=== PATIENT | male | born 1970 | race African-American/Black ===

== ENCOUNTER 2018-01-05 15:55 | Inpatient (IN) | payer SELFPAY ==
[2018-01-05] MEDS ORDERED: Nitroglycerin 0.4 MG TAB (25 Tab Bottle) SL PRN (17:08)
[2018-01-05] MEDS ORDERED: Ondansetron HCl/PF 4 MG/2 ML Vial IVP PRN ×2 (17:08)
[2018-01-05] MEDS ORDERED: Benzonatate 100 MG CAP PO PRN (17:08)
[2018-01-05] MEDS ORDERED: Calcium Carbonate 500 MG ChewTAB PO PRN (17:08)
[2018-01-05] MEDS ORDERED: traMADol HCl 50 MG TAB PO PRN (17:08)
[2018-01-05] MEDS ORDERED: Dextrose 50% Abboject 50 ML SYRINGE SLOW IVP PRN (17:08)
[2018-01-05] MEDS ORDERED: hydrALAZINE 20 MG/ML VIAL SLOW IVP PRN (17:08)
[2018-01-05] MEDS ORDERED: Bisacodyl 5 MG TAB PO PRN ×2 (17:08)
[2018-01-05] MEDS ORDERED: Loratadine 10 MG TAB PO PRN (17:08)
[2018-01-05] MEDS ORDERED: Dextrose 5% in Water 1,000 ML IV PRN (17:08)
[2018-01-05] MEDS ORDERED: Lorazepam 1 MG TAB PO PRN (17:08)
[2018-01-05] MEDS ORDERED: HumaLOG 300 UNITS/3 ML VIAL SC PRN (17:08)
[2018-01-05] MEDS ORDERED: Mag-Al 1200 mg/1200 mg/30 ML UDCUP PO PRN (17:08)
[2018-01-05] MEDS ORDERED: Diabetic Tussin 200 MG/10 ML UDCUP PO PRN (17:08)
[2018-01-05] MEDS ORDERED: Senokot 8.6 MG TAB PO PRN ×2 (17:08)
[2018-01-05 17:51] LABS: #Lymphocytes 1.1 thou/uL (1.20-3.40); #Monocytes 1.1 thou/uL (0.11-0.59); %Basophils 0.1 % (0.0-1.0); %Eosinophils 0.4 % (0.0-10.0); %Lymphocytes 9.3 % (21.0-51.0); %Neutrophils 81.3 % (42.0-75.0); Hemoglobin 10.9 g/dL (14.0-18.0); Mean Corpuscular HGB CONC 33.9 g/dL (32.0-36.0); Mean Corpuscular Hemoglobin 30.6 pg (27.0-31.0); Mean Corpuscular Volume 90.2 fL (78.0-98.0); Mean Platelet Volume 8.3 fL (7.4-10.4); Platelet Count 209 thou/uL (130-400); RBC Distribution Width 11.1 % (11.5-14.5); Red Blood Cell (RBC) Count 3.55 mill/uL (4.70-6.10); White Blood Cell (WBC) Count 12.3 thou/uL (4.8-10.8)
[2018-01-05] MEDS: Sodium Chloride 0.9% 1,000 ML IV SCH (18:04)
[2018-01-05] MEDS: Piperacillin/Tazobactam 3.375 GM in Sodium Chloride 0.9% 100 ML IVPB SCH (18:05)
[2018-01-05] MEDS: HumaLOG 300 UNITS/3 ML VIAL SC PRN (18:07)
[2018-01-05 18:23] LABS: ALT (SGPT) 9 U/L (8-55); AST (SGOT) 14 U/L (5-34); Albumin 2.7 g/dL (3.5-5.0); Alkaline Phosphatase 59 U/L (40-150); Anion Gap 12 mmol/L (10-20); BUN (Urea Nitrogen) 9 mg/dL (8.9-20.6); Bilirubin, Total 0.5 mg/dL (0.2-1.2); Calc. Creatinine Clearance 121 mL/min (70-130); Calcium 7.9 mg/dL (7.8-10.44); Carbon Dioxide 23 mmol/L (22-29); Chloride 102 mmol/L (98-107); Estimated GFR-MDRD Greater than 90; Globulin 4.2 g/dL (2.4-3.5); Glucose 220 mg/dL (70-105); Potassium 4.4 mmol/L (3.5-5.1); Protein, Total 6.9 g/dL (6.0-8.3); Sodium 133 mmol/L (136-145)
[2018-01-05 19:15] LABS: Bilirubin Negative (Negative); Blood, Urine Small (Negative); Clarity TURBID (Clear); Glucose, Urine (Dipstick) 250 mg/dL (Negative); Leukocyte Large (Negative); Nitrite Negative (Negative); Protein, Urine (Dipstick) Trace mg/dL (Neg-Trace); Specific Gravity, Urine 1.021 (1.002-1.036); pH, Urine 5.5 (5.0-9.0)
[2018-01-05 19:18] LABS: Bacteria/HPF None Seen HPF (None Seen); Hyaline Casts/LPF 4-6 HYALINE CAST LPF (0-3 Hyaline); Pathc Cast-AUWi Flag 1.52 (0-2.49); Squamous Epithelial 0-3 HPF (0-3)
[2018-01-05 19:19] LABS: Hemoglobin A1c 11.5 % (4.0-6.0)
--- NOTE | 2018-01-05 19:41 | HP ---
PRIMARY CARE PHYSICIAN: None. CHIEF COMPLAINT: Worsening of right lower extremity wound, fever, and chills. HISTORY OF PRESENT ILLNESS: Mr. Aguila is a 47-year-old male with known history of diabetes mellitus, who presented to [facility] in [facility] with above-mentioned complaints. History is m ainly obtained from the patient himself and paper records are reviewed in detail from [facility] cy Room. Mr. Aguila reports that he stopped taking his metformin about 1 year ago because of financial reasons a nd because he does not have a primary care physician. He reports that for the last year or so, he olmos s noticed some sores on his legs anteriorly, which she has been picking up. About 3 weeks ago, he tr ied to shave off some of the dry skin of his right foot on the bottom and since then it has started t o open up and drain. He was told to soak it, so he put his feet in hot water and got burnt by that a lso. For the last 4 or 5 days, he has been running a low-grade fever, is having chills, and feels po autumn. He noticed increased drainage and pain in his right foot as well. Upon presentation to the emergency room, he was hemodynamically stable. His examination revealed masoud kocytosis. He underwent a foot x-ray, which showed suggestion of osteomyelitis. He received vancomy cosme and Zosyn in the ER and was transferred to our facility for admission. At the time of my evaluation, the patient is still having some chills, but is otherwise comfortable. PAST MEDICAL HISTORY: [id number] diabetes mellitus. PAST SURGICAL HISTORY: None reviewed with the patient. SOCIAL HISTORY: No history of drug, tobacco, or alcohol abuse. He lives with his girlfriend. FAMILY HISTORY: Significant for diabetes mellitus and congestive heart failure in his mother. Some of his aunts also have had diabetes. He denies any family history of coronary artery disease, cancer , or renal failure. CURRENT MEDICATIONS: None. ALLERGIES: No known medication allergies. REVIEW OF SYSTEMS: The following complete review of systems was negative, unless otherwise mentioned in the HPI or below: Constitutional: Weight loss or gain, ability to conduct usual activities. Skin: Rash, itching. Eyes: Double vision, pain. ENT/Mouth: Nose bleeding, neck stiffness, pain, tenderness. Cardiovascular: Palpitations, dyspnea on exertion, orthopnea. Respiratory: Shortness of breath, wheezing, cough, hemoptysis, fever or night sweats. Gastrointestinal: Poor appetite, abdominal pain, heartburn, nausea, vomiting, constipation, or diarrhea. Genitourinary: Urgency, frequency, dysuria, nocturia. Musculoskeletal: Pain, swelling. Neurologic/Psychiatric: Anxiety, depression. Allergy/Immunologic: Skin rash, bleeding tendency. LABORATORY DATA: Labs are repeated here today. They showed leukocytosis with WBCs of 12.3 with left shift and neutrophils 81%. Hemoglobin is 10.9. Serum chemistry shows sodium of 133, blood sugar 22 0, albumin 2.7, otherwise unremarkable. Foot x-ray report has been reviewed by myself, which suggest right foot osteomyelitis and soft tissue inflammation and swelling. PHYSICAL EXAMINATION: VITAL SIGNS: On presentation, temperature 101.2, respirations 16, pulse of 102, saturating 96% on ro om air, blood pressure 119/75. GENERAL: No acute distress, awake, alert, oriented x3. HEENT: Mucous membrane is moist and pink. No oropharyngeal exudate or erythema. Head is normocepha lic, atraumatic. Pupils equally reactive to light and accommodation. Extraocular movement intact. NECK: Supple without any lymphadenopathy, JVD, or bruit. CHEST: Clear to auscultation without any wheezing, rales, or rhonchi. Rhythm is regular without any murmur, rubs, or gallops. ABDOMEN: Soft, nontender, nondistended with positive bowel sounds. EXTREMITIES: Chronic lower extremity venostasis changes bilaterally. He has superficial shallow den udation of the skin anteriorly in both legs and the shins. He has multiple healing scars and shallow ulcers from where he has picked on his boils on the legs. He has right foot under dressing, but Gauri marin reviewed the pictures with the RN. He has significant amount of deep ulceration of the right fir st toe on the plantar surface. He also has a shallow denudation of the skin between the first and se cond toe on the foot in the plantar surface. VASCULAR: +2 pedal pulses felt in the left lower extremity easily. Right lower extremity is in dres sing and hard to palpate. LYMPH NODE: Nontender, mobile lymphadenopathy in the right inguinal region. NEUROLOGIC: Nonfocal. SKIN: Free of any rashes and shows findings as above in the extremity examination. PSYCHIATRIC: Depressed affect. IMPRESSION AND PLAN: 1. Right lower extremity osteomyelitis. This is likely secondary to uncontrolled diabetes. The pat ient will likely need amputation or at the very least incision and drainage. At this time, we will c ontinue with broad-spectrum IV antibiotics and repeat blood cultures here. We will request consultat ion with General Surgery for possible amputation. We will also have Wound Care see and evaluate the patient. I do not suspect vascular element to his ulceration, as I was able to palpate his dorsalis pedis on the left foot easily. He is currently not in any septic shock. We will start him on gentle IV fluid hydration and monitor hemodynamics. 2. Sepsis secondary to right lower extremity osteomyelitis. Continue IV fluids and IV antibiotics a s above. 3. Uncontrolled diabetes mellitus. The patient will be treated with insulin sliding scale while he is here. We will check a hemoglobin A1c. I did discuss the diabetic control with the patient and he will be provided with cheap medications and will be set up with a primary care physician whenever he is ready to leave. 4. Code status. Code status was discussed and the patient has exhibited desire to be a DO NOT INTUB ATE and DO NOT RESUSCITATE. I have discussed this in detail with him and he understands what it enta ils. 5. Deep venous thrombosis and gastrointestinal prophylaxis. DISPOSITION: Mr. Aguila is currently being admitted for right foot osteomyelitis and sepsis. Estimate d length of stay is at least 2-3 midnight. Further management will depend upon his clinical course.
[2018-01-05] MEDS ORDERED: Vancomycin HCl 1 GM in Premix Bag 1 BAG IVPB SCH (21:00)
--- NOTE | 2018-01-05 21:21 | PDOC.EVN ---
Event Note - Event Note Event Note: paged by RN pt willing to change DNR status to full code.
[2018-01-05] MEDS: Famotidine 20 MG TAB PO SCH (21:31)
[2018-01-05] MEDS: Vancomycin HCl 1.25 GM in Sodium Chloride 0.9% 250 ML 250 ML IVPB SCH (21:32)
[2018-01-06] MEDS: Piperacillin/Tazobactam 3.375 GM in Sodium Chloride 0.9% 100 ML IVPB SCH ×5 (00:59→23:24)
[2018-01-06] MEDS: Acetaminophen 325 MG TAB PO PRN ×2 (03:45→13:44)
[2018-01-06 04:35] LABS: #Eosinphils 0.1 thou/uL (0.0-0.7); #Lymphocytes 1.9 thou/uL (1.20-3.40); #Monocytes 1.2 thou/uL (0.11-0.59); #Neutrophils 8.5 thou/uL (1.40-6.50); %Basophils 0.3 % (0.0-1.0); %Eosinophils 0.9 % (0.0-10.0); %Lymphocytes 15.9 % (21.0-51.0); %Monocytes 10.3 % (0.0-10.0); %Neutrophils 72.6 % (42.0-75.0); Hemoglobin 11.2 g/dL (14.0-18.0); Mean Corpuscular HGB CONC 33.9 g/dL (32.0-36.0); Mean Corpuscular Hemoglobin 30.7 pg (27.0-31.0); Mean Corpuscular Volume 90.6 fL (78.0-98.0); Mean Platelet Volume 8.8 fL (7.4-10.4); Platelet Count 194 thou/uL (130-400); RBC Distribution Width 11.2 % (11.5-14.5); Red Blood Cell (RBC) Count 3.66 mill/uL (4.70-6.10); White Blood Cell (WBC) Count 11.7 thou/uL (4.8-10.8)
[2018-01-06 05:02] LABS: Anion Gap 12 mmol/L (10-20); BUN (Urea Nitrogen) 9 mg/dL (8.9-20.6); Calc. Creatinine Clearance 122 mL/min (70-130); Calcium 8.3 mg/dL (7.8-10.44); Carbon Dioxide 22 mmol/L (22-29); Chloride 104 mmol/L (98-107); Estimated GFR-MDRD Greater than 90; Glucose 164 mg/dL (70-105); Sodium 134 mmol/L (136-145)
[2018-01-06] MEDS: Vancomycin HCl 1.25 GM in Sodium Chloride 0.9% 250 ML 250 ML IVPB SCH ×3 (05:50→23:06)
[2018-01-06] MEDS: Famotidine 20 MG TAB PO SCH ×2 (10:11→23:06)
[2018-01-06] MEDS: Enoxaparin Sodium 40 MG/0.4 ML SYRINGE SC SCH (10:11)
--- NOTE | 2018-01-06 11:34 | MRI ---
MRI OF THE RIGHT FOREFOOT WITH AND WITHOUT CONTRAST: HISTORY: Diabetic ulcer. Osteomyelitis. COMPARISON: None. FINDINGS: Bones: On the T1 weighted imaging sequence, there is loss of normal marrow signal throughout the great toe d istal phalanx. Mild reactive edema of the proximal phalanx. There is an abscess descending into the dorsal soft tissues to the level of the proximal phalanx grea t toe. Extensive reactive edema and swelling throughout the forefoot. Mild infectious inflammatory tenosyno vitis of the extensor pollicis longus tendon. Moderate degenerative disease of the mid foot. Moderate muscle atrophy. IMPRESSION: Osteomyelitis of the great toe distal phalanx with a suggestion of interphalangeal septic arthritis. There is large dorsal soft tissue edema and draining abscess measuring 1.6 x 1.1 x 1.5 cm. POS: FRANCISCO
--- NOTE | 2018-01-06 11:58 | PDOC.PN ---
- Subjective Encounter Start Date: 01/06/18 Encounter Start Time: 11:56 Subjective: feels better. no more fever/chills -: no pain in foot.no N/V/D - Objective Resuscitation Status: Resuscitation Status FULL:Full Resuscitation MAR Reviewed: Yes Vital Signs & Weight: Vital Signs (12 hours) Temp Pulse Resp BP Pulse Ox 01/06/18 06:42 95 01/06/18 04:00 100.4 F H 112 H 18 149/85 H 95 01/06/18 00:00 100.0 F H 101 H 18 131/81 96 Weight Weight 190 lb I&O: 01/05/18 01/06/18 01/07/18 06:59 06:59 06:59 Intake Total 3160 Balance 3160 Result Diagrams: 01/06/18 03:51 01/06/18 03:51 Additional Labs: Accuchecks 01/06/18 01/05/18 06:27 18:00 POC Glucose 182 H 216 H Microbiology 01/05/18 19:00 Urine clean catch Urine Culture - Preliminary Staphylococcus aureus 01/05/18 17:43 Venous blood - Left Arm Blood Culture - Preliminary Specimen has been received and culture in progress. No Growth to date. 01/05/18 17:38 Venous blood - Right Arm Blood Culture - Preliminary Specimen has been received and culture in progress. No Growth to date. labs reviewed Phys Exam - Physical Examination Constitutional: NAD HEENT: PERRLA, moist MMs, sclera anicteric, oral pharynx no lesions Neck: no nodes, no JVD, supple, full ROM Respiratory: no wheezing, no rales, no rhonchi, clear to auscultation bilateral Cardiovascular: RRR, no significant murmur, no rub Gastrointestinal: soft, non-tender, no distention, positive bowel sounds Musculoskeletal: no edema, pulses present B/L LE chr discoloration w ant excoriation.R foot dressing Neurological: non-focal, normal sensation, moves all 4 limbs Psychiatric: normal affect, A&O x 3 Skin: no rash Dx/Plan (1) Foot osteomyelitis, right Code(s): M86.9 - OSTEOMYELITIS, UNSPECIFIED Status: Acute (2) Sepsis Code(s): A41.9 - SEPSIS, UNSPECIFIED ORGANISM Status: Acute (3) Uncontrolled diabetes mellitus Code(s): E11.65 - TYPE 2 DIABETES MELLITUS WITH HYPERGLYCEMIA Status: Acute - Plan continue antibiotics, out of bed/ambulate, DVT proph w/SCDs MRI shows osteo.cont broad spectrum antibiotics. -: OR today by GS for I&D. may need amputation. -: HbA1c >11. will need to be started on metformin on DC.Cont Insulin for now. -: will consult palliative care team for emotional support & goals of care -: will likley need wound care/vac/PICC & IV Abx.will follow * . Review of Systems - Review of Systems Constitutional: malaise. negative: fever, chills, sweats, weakness, other Respiratory: negative: Cough, Dry, Shortness of Breath, Hemoptysis, SOB with Excertion, Pleuritic Pain, Sputum, Wheezing Cardiovascular: negative: chest pain, palpitations, orthopnea, paroxysmal nocturnal dyspnea, edema, light headedness, other Gastrointestinal: negative: Nausea, Vomiting, Abdominal Pain, Diarrhea, Constipation, Melena, Hematochezia, Other Genitourinary: negative: Dysuria, Frequency, Incontinence, Hematuria, Retention , Other Musculoskeletal: negative: Neck Pain, Shoulder Pain, Arm Pain, Back Pain, Hand Pain, Leg Pain, Foot Pain, Other Skin: negative: Rash, Lesions, Aba, Bruising, Other Neurological: negative: Weakness, Numbness, Incoordination, Change in Speech, Confusion, Seizures, Other - Medications/Allergies Allergies/Adverse Reactions: Allergies Allergy/AdvReac Type Severity Reaction Status Date / Time No Known Allergies Allergy Unverified 01/05/18 17:17 Medications: Current Medications Acetaminophen (Tylenol) 650 mg PO Q4H PRN PRN Reason: Headache/Fever or Pain Last Admin: 01/06/18 03:45 Dose: 650 mg Hydrocodone Bitart/Acetaminophen ([place] 5/325) 1 tab PO Q4H PRN PRN Reason: Moderate Pain (4-6) Al Hydroxide/Mg Hydroxide (Maalox) 30 ml PO Q6H PRN PRN Reason: Heartburn or Indigestion Benzonatate (Tessalon) 100 mg PO Q4H PRN PRN Reason: Cough Bisacodyl (Dulcolax) 10 mg PO DAILYPRN PRN PRN Reason: Constipation Calcium Carbonate (Tums) 1,000 mg PO Q4H PRN PRN Reason: Heartburn or Indigestion Clonidine (Catapres) 0.1 mg PO Q4H PRN PRN Reason: Systolic BP > 160 Dextrose/Water (Dextrose 50%) 25 gm SLOW IVP PRN PRN PRN Reason: Hypoglycemia Enoxaparin Sodium (Lovenox) 40 mg SC 0900 [facility] Last Admin: 01/06/18 10:11 Dose: Not Given Famotidine (Pepcid) 20 mg PO BID [facility] Last Admin: 01/06/18 10:11 Dose: Not Given Glucagon (Glucagon) 1 mg IM PRN PRN PRN Reason: Hypoglycemia Guaifenesin (Robitussin Sf) 200 mg PO Q4H PRN PRN Reason: Cough Hydralazine HCl (Apresoline) 10 mg SLOW IVP Q4H PRN PRN Reason: Systolic BP > 170 Dextrose/Water (D5w) 1,000 mls @ 0 mls/hr IV .Q0M PRN; As Directed PRN Reason: Hypoglycemia Sodium Chloride (Normal Saline 0.9%) 1,000 mls @ 75 mls/hr IV .[id number] [facility] Last Admin: 01/05/18 18:04 Dose: 1,000 mls Piperacillin Sod/Tazobactam (Sod 3.375 gm/ Sodium Chloride) 100 mls @ 200 mls/ hr IVPB Q6HR [facility] Last Admin: 01/06/18 05:52 Dose: 100 mls Vancomycin HCl 1.25 gm/ Sodium (Chloride) 250 mls @ 166.667 mls/hr IVPB 0500, 1300,2100 [facility] Last Admin: 01/06/18 05:50 Dose: 250 mls Insulin Human Lispro (Humalog) 0 units SC .MODERATE SLIDING SC PRN PRN Reason: Moderate Correctional Scale Last Admin: 01/05/18 18:07 Dose: 4 unit Insulin Human Lispro (Humalog) 0 units SC .BEDTIME SLIDING SC PRN PRN Reason: Bedtime Correctional Scale Loratadine (Claritin) 10 mg PO DAILYPRN PRN PRN Reason: Sinus Symptoms Lorazepam (Ativan) 1 mg PO Q4H PRN PRN Reason: Anxiety/Agitation Miscellaneous Medication (Pharmacy To Dose) 1 each IVPB PRN PRN PRN Reason: . Nitroglycerin (Nitrostat) 0.4 mg SL Q5MIN PRN PRN Reason: Chest Pain Ondansetron HCl (Zofran) 4 mg IVP Q6H PRN PRN Reason: Nausea/Vomiting Senna (Senokot) 2 tab PO HSPRN PRN PRN Reason: Constipation Tramadol HCl (Ultram) 50 mg PO Q4H PRN PRN Reason: Moderate Pain (4-6)
[2018-01-06 12:16] VITALS: BMI 22.5
[2018-01-06 12:20] LABS: Vancomycin, Trough 13.4 ug/mL
[2018-01-06] MEDS ORDERED: Ketorolac Tromethamine 30 MG/ML VIAL ONE ×2 (16:00→21:11)
[2018-01-06] MEDS ORDERED: Ondansetron HCl/PF 4 MG/2 ML Vial ONE (16:00)
[2018-01-06] MEDS ORDERED: Lidocaine 1% PF 5 ML VIAL ONE (16:00)
[2018-01-06] MEDS ORDERED: PROPOFOL 200 MG/20 ML VIAL ONE (16:00)
--- NOTE | 2018-01-06 18:58 | HP ---
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 He lives in [place]. He has been a diabetic for more than 4 years, but has not taken his medicatio ns. He is admitted for a diabetic infection in right great toe. His white count is 11.7, hemoglobin 11.2. His hemoglobin A1c is 11.5, glucose is 164 to 220. He has had an MRI of his foot revealing s evere infection, cellulitis, osteomyelitis of the great toe. There is a septic arthritis present. I have been asked to see him regarding surgical care. He has been admitted by the hospitalist service . ALLERGIES: None. TOBACCO: None. ALCOHOL: Socially. MEDICATIONS: None at home. In the hospital, he is on Zosyn, vancomycin, hydralazine, insulin slidin g scale, Lovenox. PAST SURGICAL HISTORY: None. PAST MEDICAL HISTORY: Diabetes, but noncompliant on medications. REVIEW OF SYSTEMS: Ten point noncontributory. FAMILY HISTORY: Noncontributory. PHYSICAL EXAMINATION: VITAL SIGNS: 6 feet 5 inches, 190 pounds, 22 BMI. 98.8, 94, 16, 156/88. HEAD, EARS, EYES, NOSE, AND THROAT: Unremarkable. LUNGS: Clear to auscultation. CARDIAC: Regular rate and rhythm without murmur or gallop. ABDOMEN: Soft, nontender. No masses. EXTREMITIES: Palpable femoral, popliteal, and pedal pulses. No ankle edema. He has multiple open s ores over both lower extremities. He has open wound in his left elbow. NEUROLOGIC: Intact. LYMPH: No lymphadenopathy in neck, axilla, or groins. SKIN: Skin turgor is normal otherwise. Right great toe reveals severe edema, inflammation, and puru lent discharge in the webspace of the first and second toes. ASSESSMENT AND PLAN: Noncompliant diabetic with a diabetic foot infection, right. We would recommen d amputation of the right great toe and probably metatarsal healing by secondary intention. The rick ent understands the risks of infection, bleeding, re-operation. He will have a postoperative wound s hoe. He can weightbear as tolerated postoperatively. Anticipate discharge to home sometime tomorrow with outpatient wound VAC.
[2018-01-06] MEDS ORDERED: Fentanyl 100 MCG/2 ML VIAL ONE ×2 (20:56→21:23)
[2018-01-06] MEDS ORDERED: traMADol HCl 50 MG TAB PO PRN (21:33)
[2018-01-06] MEDS ORDERED: Ibuprofen 600 MG TAB PO PRN (21:33)
[2018-01-06] MEDS ORDERED: Morphine Sulfate 2 MG/ML SYRINGE SLOW IVP PRN (21:55)
[2018-01-06] MEDS ORDERED: Ondansetron HCl/PF 4 MG/2 ML Vial IVP PRN (21:55)
[2018-01-06] MEDS ORDERED: Promethazine HCl 25 MG/ML VIAL IM PRN (21:55)
[2018-01-06] MEDS ORDERED: Promethazine HCl 25 MG/ML VIAL SLOW IVP PRN (21:55)
[2018-01-06] MEDS: cloNIDine 0.1 MG TAB PO PRN (23:06)
[2018-01-06] MEDS: Sodium Chloride 0.9% 1,000 ML IV SCH ×2 (23:26→23:27)
[2018-01-07] MEDS: Vancomycin HCl 1.25 GM in Sodium Chloride 0.9% 250 ML 250 ML IVPB SCH ×2 (05:06→14:09)
[2018-01-07] MEDS: Sodium Chloride 0.9% 1,000 ML IV SCH ×3 (05:07→21:33)
[2018-01-07] MEDS: Piperacillin/Tazobactam 3.375 GM in Sodium Chloride 0.9% 100 ML IVPB SCH ×4 (05:07→23:19)
--- NOTE | 2018-01-07 05:09 | OP ---
PREOPERATIVE DIAGNOSES: Diabetic infection, right great toe with osteomyelitis of the distal phalanx , noncompliant diabetes, hemoglobin A1c 11.4, not taking his medications. No evidence of peripheral artery disease, no tobacco use. POSTOPERATIVE DIAGNOSES: Diabetic infection, right great toe with osteomyelitis of the distal phalan x, noncompliant diabetes, hemoglobin A1c 11.4, not take his medications. No evidence of peripheral a rtery disease, no tobacco use. PROCEDURE: Amputation of the right great toe through the proximal phalanx wound, left toe healing by secondary intention for wound VAC application tomorrow. SURGEON: Jameson Grayson MD ANESTHESIA: General. PROCEDURE IN DETAIL: Patient was taken to the operating room where under general anesthesia in the s upine position, his right lower extremity was prepared with ChloraPrep, draped in routine fashion. T he patient had a toe plantar ulcer with purulent discharge and MRI preoperatively demonstrated osteom yelitis in great toe, amputation of the right great toe to the proximal phalanx, carried down skin an d subcutaneous tissue, preserving skin for secondary wound healing. The proximal phalanx transected with a bone cutter, resected proximally with rongeurs. Connective tissue, tendons debrided sharply e xcised. Wound irrigated. Sterile dressings applied. Patient tolerated the procedure well. There w as good bleeding.
[2018-01-07] MEDS: Acetaminophen 500 MG TAB PO PRN ×2 (05:12→18:35)
[2018-01-07] MEDS: Enoxaparin Sodium 40 MG/0.4 ML SYRINGE SC SCH (09:46)
[2018-01-07] MEDS: Famotidine 20 MG TAB PO SCH ×2 (09:46→21:32)
[2018-01-07 12:53] LABS: Vancomycin, Trough 23.6 ug/mL
[2018-01-07] MEDS: Insulin NPH/Reg Insulin Hm 300 UNITS/3 ML VIAL SC SCH ×2 (12:59→18:08)
--- NOTE | 2018-01-07 13:26 | PDOC.PN ---
- Subjective Encounter Start Date: 01/07/18 Encounter Start Time: 13:24 Subjective: feels much better.s/p R toe amputation yesterday. -: care discussed w GF & Pt.advised about the need for Insulin-pt reluctant -: no F/C.no CP/SOB - Objective Resuscitation Status: Resuscitation Status FULL:Full Resuscitation MAR Reviewed: Yes Vital Signs & Weight: Vital Signs (12 hours) Temp Pulse Resp BP Pulse Ox 01/07/18 09:38 98.1 F 79 18 157/97 H 97 01/07/18 03:44 98.2 F 81 16 137/92 H 100 Weight Admit Weight 181 lb Weight 191 lb 12.8 oz I&O: 01/06/18 01/07/18 01/08/18 06:59 06:59 06:59 Intake Total 3160 1380 Output Total 820 Balance 3160 560 Result Diagrams: 01/06/18 03:51 01/06/18 03:51 Additional Labs: Accuchecks 01/07/18 01/07/18 01/06/18 10:58 05:27 23:04 POC Glucose 232 H 194 H 105 01/06/18 01/06/18 20:50 16:35 POC Glucose 119 H 146 H Microbiology 01/06/18 21:50 Toe - Right Bacterial Culture - Preliminary 01/05/18 19:00 Urine clean catch Urine Culture - Preliminary Staphylococcus aureus 01/05/18 17:43 Venous blood - Left Arm Blood Culture - Preliminary Specimen has been received and culture in progress. No Growth to date. 01/05/18 17:38 Venous blood - Right Arm Blood Culture - Preliminary Specimen has been received and culture in progress. No Growth to date. labs reviewed Phys Exam - Physical Examination Constitutional: NAD HEENT: PERRLA, moist MMs, sclera anicteric, oral pharynx no lesions Neck: no nodes, no JVD, supple, full ROM Respiratory: no wheezing, no rales, no rhonchi, clear to auscultation bilateral Cardiovascular: RRR, no significant murmur, no rub Gastrointestinal: soft, non-tender, no distention, positive bowel sounds Musculoskeletal: no edema, pulses present Neurological: non-focal, normal sensation, moves all 4 limbs Psychiatric: normal affect, A&O x 3 Skin: no rash Dx/Plan (1) Foot osteomyelitis, right Code(s): M86.9 - OSTEOMYELITIS, UNSPECIFIED Status: Acute Comment: s/p amputation (2) Sepsis Code(s): A41.9 - SEPSIS, UNSPECIFIED ORGANISM Status: Acute (3) Uncontrolled diabetes mellitus Code(s): E11.65 - TYPE 2 DIABETES MELLITUS WITH HYPERGLYCEMIA Status: Acute - Plan plan discussed w/ family, continue antibiotics, PT/OT, out of bed/ambulate, DVT proph w/SCDs Cont woun dcare and wound vac. -: cont ABx. urine Cx +ve for Staph-unclear significance. on Vanco & zosyn. -: follow results from Bone biopsy & Cx for final ABx -: CM assisting w Wound care & wound Vac for DC -: start 70/30 insulin & Glimepride.pt educated extensively * .hemodynamically stable. Transfer to medical. * Dc only after bone Biopsy & bone Cx reults are back. * am labs Review of Systems - Review of Systems Constitutional: negative: fever, chills, sweats, weakness, malaise, other ENT: negative: Ear Pain, Ear Discharge, Nose Pain, Nose Discharge, Nose Congestion, Mouth Pain, Mouth Swelling, Throat Pain, Throat Swelling, Other Respiratory: negative: Cough, Dry, Shortness of Breath, Hemoptysis, SOB with Excertion, Pleuritic Pain, Sputum, Wheezing Cardiovascular: negative: chest pain, palpitations, orthopnea, paroxysmal nocturnal dyspnea, edema, light headedness, other Gastrointestinal: negative: Nausea, Vomiting, Abdominal Pain, Diarrhea, Constipation, Melena, Hematochezia, Other Genitourinary: negative: Dysuria, Frequency, Incontinence, Hematuria, Retention , Other Musculoskeletal: negative: Neck Pain, Shoulder Pain, Arm Pain, Back Pain, Hand Pain, Leg Pain, Foot Pain, Other Skin: negative: Rash, Lesions, Aba, Bruising, Other Neurological: negative: Weakness, Numbness, Incoordination, Change in Speech, Confusion, Seizures, Other - Medications/Allergies Allergies/Adverse Reactions: Allergies Allergy/AdvReac Type Severity Reaction Status Date / Time No Known Allergies Allergy Unverified 01/05/18 17:17 Medications: Current Medications Acetaminophen (Tylenol) 1,000 mg PO Q6H PRN PRN Reason: Moderate to Severe Pain (6-10) Last Admin: 01/07/18 05:12 Dose: 1,000 mg Hydrocodone Bitart/Acetaminophen ([place] 5/325) 1 tab PO Q4H PRN PRN Reason: Moderate Pain (4-6) Al Hydroxide/Mg Hydroxide (Maalox) 30 ml PO Q6H PRN PRN Reason: Heartburn or Indigestion Benzonatate (Tessalon) 100 mg PO Q4H PRN PRN Reason: Cough Bisacodyl (Dulcolax) 10 mg PO DAILYPRN PRN PRN Reason: Constipation Calcium Carbonate (Tums) 1,000 mg PO Q4H PRN PRN Reason: Heartburn or Indigestion Clonidine (Catapres) 0.1 mg PO Q4H PRN PRN Reason: Systolic BP > 160 Last Admin: 01/06/18 23:06 Dose: 0.1 mg Dextrose/Water (Dextrose 50%) 25 gm SLOW IVP PRN PRN PRN Reason: Hypoglycemia Enoxaparin Sodium (Lovenox) 40 mg SC 0900 [facility] Last Admin: 01/07/18 09:46 Dose: 40 mg Famotidine (Pepcid) 20 mg PO BID [facility] Last Admin: 01/07/18 09:46 Dose: 20 mg Glimepiride (Amaryl) 2 mg PO [facility] Glucagon (Glucagon) 1 mg IM PRN PRN PRN Reason: Hypoglycemia Guaifenesin (Robitussin Sf) 200 mg PO Q4H PRN PRN Reason: Cough Hydralazine HCl (Apresoline) 10 mg SLOW IVP Q4H PRN PRN Reason: Systolic BP > 170 Dextrose/Water (D5w) 1,000 mls @ 0 mls/hr IV .Q0M PRN; As Directed PRN Reason: Hypoglycemia Sodium Chloride (Normal Saline 0.9%) 1,000 mls @ 75 mls/hr IV .[id number] [facility] Last Admin: 01/07/18 09:48 Dose: 1,000 mls Piperacillin Sod/Tazobactam (Sod 3.375 gm/ Sodium Chloride) 100 mls @ 200 mls/ hr IVPB Q6HR [facility] Last Admin: 01/07/18 11:50 Dose: 100 mls Vancomycin HCl 1 gm/ Device 200 mls @ 200 mls/hr IVPB Q8HR [facility] Ibuprofen (Motrin) 600 mg PO Q6H PRN PRN Reason: Pain 1-3 Insulin Human Isoph/Insulin Regular (Humulin 70/30) 15 units SC AC [facility] Last Admin: 01/07/18 12:59 Dose: 15 unit Insulin Human Lispro (Humalog) 0 units SC .MODERATE SLIDING SC PRN PRN Reason: Moderate Correctional Scale Last Admin: 01/05/18 18:07 Dose: 4 unit Insulin Human Lispro (Humalog) 0 units SC .BEDTIME SLIDING SC PRN PRN Reason: Bedtime Correctional Scale Loratadine (Claritin) 10 mg PO DAILYPRN PRN PRN Reason: Sinus Symptoms Lorazepam (Ativan) 1 mg PO Q4H PRN PRN Reason: Anxiety/Agitation Miscellaneous Medication (Pharmacy To Dose) 1 each IVPB PRN PRN PRN Reason: . Nitroglycerin (Nitrostat) 0.4 mg SL Q5MIN PRN PRN Reason: Chest Pain Ondansetron HCl (Zofran) 4 mg IVP Q6H PRN PRN Reason: Nausea/Vomiting Senna (Senokot) 2 tab PO HSPRN PRN PRN Reason: Constipation Tramadol HCl (Ultram) 100 mg PO Q6H PRN PRN Reason: Pain 4-6
[2018-01-07] MEDS: Vancomycin HCl 1 GM in Premix Bag 1 BAG IVPB SCH ×2 (14:05→21:32)
[2018-01-07] MEDS: HumaLOG 300 UNITS/3 ML VIAL SC PRN (18:08)
--- NOTE | 2018-01-07 20:20 | PRG ---
DATE OF SERVICE: 01/07/2018 SUBJECTIVE: Mr. Aguila is doing well today. He is afebrile. Vital signs stable. He has very little pain. Wound care is placed a wound VAC on his right foot. The patient is doing well. I will view h is wound Tuesday. The patient can be discharged home Tuesday on oral antibiotics. Follow up in my off ice in 2-3 weeks. He can weightbear as tolerated, using a postoperative shoe when out of bed. I exp ect this wound heal quickly. Medical is working with him, better control of his diabetes. Intraoper ative cultures were submitted. Blood cultures negative.
[2018-01-08] MEDS: HYDROcodone/Acetaminophen 5/325 mg Tablet PO PRN ×3 (00:20→13:13)
[2018-01-08 05:17] LABS: #Eosinphils 0.3 thou/uL (0.0-0.7); #Lymphocytes 1.7 thou/uL (1.20-3.40); #Monocytes 0.7 thou/uL (0.11-0.59); #Neutrophils 2.3 thou/uL (1.40-6.50); %Basophils 0.2 % (0.0-1.0); %Eosinophils 6.2 % (0.0-10.0); %Lymphocytes 33.5 % (21.0-51.0); %Monocytes 13.4 % (0.0-10.0); %Neutrophils 46.6 % (42.0-75.0); Hemoglobin 10.8 g/dL (14.0-18.0); Mean Corpuscular HGB CONC 33.7 g/dL (32.0-36.0); Mean Corpuscular Hemoglobin 30.2 pg (27.0-31.0); Mean Corpuscular Volume 89.6 fL (78.0-98.0); Mean Platelet Volume 7.7 fL (7.4-10.4); Platelet Count 244 thou/uL (130-400); RBC Distribution Width 11.1 % (11.5-14.5); Red Blood Cell (RBC) Count 3.56 mill/uL (4.70-6.10)
[2018-01-08] MEDS: Piperacillin/Tazobactam 3.375 GM in Sodium Chloride 0.9% 100 ML IVPB SCH ×4 (05:31→23:19)
[2018-01-08] MEDS: HumaLOG 300 UNITS/3 ML VIAL SC PRN (05:36)
[2018-01-08 05:49] LABS: Anion Gap 10 mmol/L (10-20); BUN (Urea Nitrogen) 7 mg/dL (8.9-20.6); Calc. Creatinine Clearance 126 mL/min (70-130); Calcium 8.7 mg/dL (7.8-10.44); Carbon Dioxide 27 mmol/L (22-29); Chloride 104 mmol/L (98-107); Estimated GFR-MDRD Greater than 90; Glucose 223 mg/dL (70-105); Sodium 137 mmol/L (136-145)
[2018-01-08] MEDS: Vancomycin HCl 1 GM in Premix Bag 1 BAG IVPB SCH ×3 (06:28→21:00)
[2018-01-08] MEDS: Insulin NPH/Reg Insulin Hm 300 UNITS/3 ML VIAL SC SCH ×3 (08:48→17:17)
[2018-01-08] MEDS: Famotidine 20 MG TAB PO SCH ×2 (08:48→20:59)
[2018-01-08] MEDS: Enoxaparin Sodium 40 MG/0.4 ML SYRINGE SC SCH (08:49)
[2018-01-08] MEDS: Glimepiride 2 MG TAB PO SCH (10:03)
--- NOTE | 2018-01-08 13:39 | PDOC.PN ---
- Subjective Encounter Start Date: 01/08/18 Encounter Start Time: 13:38 Subjective: feels jittery,anxious about care post discharge - Objective Resuscitation Status: Resuscitation Status FULL:Full Resuscitation MAR Reviewed: Yes Vital Signs & Weight: Vital Signs (12 hours) Temp Pulse Resp BP Pulse Ox 01/08/18 11:10 97.8 F 82 18 145/90 H 97 01/08/18 08:00 97.8 F 82 18 97 Weight Admit Weight 181 lb Weight 191 lb 12.8 oz I&O: 01/07/18 01/08/18 01/09/18 06:59 06:59 06:59 Intake Total 1380 2523 Output Total 820 700 Balance 560 1823 Result Diagrams: 01/08/18 04:51 01/08/18 04:51 Additional Labs: Accuchecks 01/08/18 01/08/18 01/08/18 11:21 08:46 05:11 POC Glucose 186 H 183 H 228 H 01/07/18 01/07/18 21:29 16:37 POC Glucose 212 H 189 H Microbiology 01/05/18 19:00 Urine clean catch Urine Culture - Final Staphylococcus aureus 01/06/18 21:50 Toe - Right Bacterial Culture - Preliminary 01/05/18 17:43 Venous blood - Left Arm Blood Culture - Preliminary NO GROWTH AT 48 HOURS 01/05/18 17:38 Venous blood - Right Arm Blood Culture - Preliminary NO GROWTH AT 48 HOURS labs reviewed Phys Exam - Physical Examination Constitutional: NAD HEENT: PERRLA, moist MMs, sclera anicteric, oral pharynx no lesions Neck: no nodes, no JVD, supple, full ROM Respiratory: no wheezing, no rales, no rhonchi, clear to auscultation bilateral Cardiovascular: RRR, no significant murmur Gastrointestinal: soft, non-tender, no distention, positive bowel sounds Musculoskeletal: no edema, pulses present s/p R great toe amputation Neurological: non-focal, normal sensation, moves all 4 limbs Psychiatric: normal affect, A&O x 3 Dx/Plan (1) Foot osteomyelitis, right Code(s): M86.9 - OSTEOMYELITIS, UNSPECIFIED Status: Acute Comment: s/p amputation (2) Sepsis Code(s): A41.9 - SEPSIS, UNSPECIFIED ORGANISM Status: Acute (3) Uncontrolled diabetes mellitus Code(s): E11.65 - TYPE 2 DIABETES MELLITUS WITH HYPERGLYCEMIA Status: Acute - Plan plan discussed w/ family, continue antibiotics, out of bed/ambulate, DVT proph w /SCDs Cont IV Abx.bone biopsy & Cx pending. -: wound care and wound Vac.Home set up in progress -: Blood sugar better.cont Insulin 70/30,SSI & glimepride -: hemodynamically stable. -: DC when final Cx is back to decide which Abx is needed for DC * . Review of Systems - Review of Systems Constitutional: negative: fever, chills, sweats, weakness, malaise, other ENT: negative: Ear Pain, Ear Discharge, Nose Pain, Nose Discharge, Nose Congestion, Mouth Pain, Mouth Swelling, Throat Pain, Throat Swelling, Other Respiratory: negative: Cough, Dry, Shortness of Breath, Hemoptysis, SOB with Excertion, Pleuritic Pain, Sputum, Wheezing Cardiovascular: negative: chest pain, palpitations, orthopnea, paroxysmal nocturnal dyspnea, edema, light headedness, other Gastrointestinal: negative: Nausea, Vomiting, Abdominal Pain, Diarrhea, Constipation, Melena, Hematochezia, Other Genitourinary: negative: Dysuria, Frequency, Incontinence, Hematuria, Retention , Other Musculoskeletal: negative: Neck Pain, Shoulder Pain, Arm Pain, Back Pain, Hand Pain, Leg Pain, Foot Pain, Other Neurological: negative: Weakness, Numbness, Incoordination, Change in Speech, Confusion, Seizures, Other - Medications/Allergies Allergies/Adverse Reactions: Allergies Allergy/AdvReac Type Severity Reaction Status Date / Time No Known Allergies Allergy Unverified 01/05/18 17:17 Medications: Current Medications Acetaminophen (Tylenol) 1,000 mg PO Q6H PRN PRN Reason: Moderate to Severe Pain (6-10) Last Admin: 01/07/18 18:35 Dose: 1,000 mg Hydrocodone Bitart/Acetaminophen ([place] 5/325) 1 tab PO Q4H PRN PRN Reason: Moderate Pain (4-6) Last Admin: 01/08/18 13:13 Dose: 1 tab Al Hydroxide/Mg Hydroxide (Maalox) 30 ml PO Q6H PRN PRN Reason: Heartburn or Indigestion Benzonatate (Tessalon) 100 mg PO Q4H PRN PRN Reason: Cough Bisacodyl (Dulcolax) 10 mg PO DAILYPRN PRN PRN Reason: Constipation Last Admin: 01/08/18 13:13 Dose: 10 mg Calcium Carbonate (Tums) 1,000 mg PO Q4H PRN PRN Reason: Heartburn or Indigestion Clonidine (Catapres) 0.1 mg PO Q4H PRN PRN Reason: Systolic BP > 160 Last Admin: 01/06/18 23:06 Dose: 0.1 mg Dextrose/Water (Dextrose 50%) 25 gm SLOW IVP PRN PRN PRN Reason: Hypoglycemia Enoxaparin Sodium (Lovenox) 40 mg SC 0900 [facility] Last Admin: 01/08/18 08:49 Dose: 40 mg Famotidine (Pepcid) 20 mg PO BID [facility] Last Admin: 01/08/18 08:48 Dose: 20 mg Glimepiride (Amaryl) 2 mg PO QAM-[facility] Last Admin: 01/08/18 10:03 Dose: 2 mg Glucagon (Glucagon) 1 mg IM PRN PRN PRN Reason: Hypoglycemia Guaifenesin (Robitussin Sf) 200 mg PO Q4H PRN PRN Reason: Cough Hydralazine HCl (Apresoline) 10 mg SLOW IVP Q4H PRN PRN Reason: Systolic BP > 170 Dextrose/Water (D5w) 1,000 mls @ 0 mls/hr IV .Q0M PRN; As Directed PRN Reason: Hypoglycemia Piperacillin Sod/Tazobactam (Sod 3.375 gm/ Sodium Chloride) 100 mls @ 200 mls/ hr IVPB Q6HR [facility] Last Admin: 01/08/18 12:21 Dose: 100 mls Vancomycin HCl 1 gm/ Device 200 mls @ 200 mls/hr IVPB Q8HR [facility] Last Admin: 01/08/18 06:28 Dose: 200 mls Ibuprofen (Motrin) 600 mg PO Q6H PRN PRN Reason: Pain 1-3 Insulin Human Isoph/Insulin Regular (Humulin 70/30) 15 units SC [facility] Last Admin: 01/08/18 12:23 Dose: 15 unit Insulin Human Lispro (Humalog) 0 units SC .MODERATE SLIDING SC PRN PRN Reason: Moderate Correctional Scale Last Admin: 01/08/18 05:36 Dose: 4 unit Insulin Human Lispro (Humalog) 0 units SC .BEDTIME SLIDING SC PRN PRN Reason: Bedtime Correctional Scale Last Admin: 01/07/18 21:36 Dose: 2 unit Loratadine (Claritin) 10 mg PO DAILYPRN PRN PRN Reason: Sinus Symptoms Lorazepam (Ativan) 1 mg PO Q4H PRN PRN Reason: Anxiety/Agitation Miscellaneous Medication (Pharmacy To Dose) 1 each IVPB PRN PRN PRN Reason: . Nitroglycerin (Nitrostat) 0.4 mg SL Q5MIN PRN PRN Reason: Chest Pain Ondansetron HCl (Zofran) 4 mg IVP Q6H PRN PRN Reason: Nausea/Vomiting Senna (Senokot) 2 tab PO HSPRN PRN PRN Reason: Constipation Tramadol HCl (Ultram) 100 mg PO Q6H PRN PRN Reason: Pain 4-6 Last Admin: 01/07/18 21:33 Dose: 100 mg
[2018-01-08 13:44] LABS: Vancomycin, Trough 18.8 ug/mL
[2018-01-09] MEDS: Piperacillin/Tazobactam 3.375 GM in Sodium Chloride 0.9% 100 ML IVPB SCH ×4 (05:00→23:08)
[2018-01-09] MEDS: Vancomycin HCl 1 GM in Premix Bag 1 BAG IVPB SCH ×3 (06:04→21:09)
[2018-01-09] MEDS: Enoxaparin Sodium 40 MG/0.4 ML SYRINGE SC SCH (08:48)
[2018-01-09] MEDS: Glimepiride 2 MG TAB PO SCH (08:48)
[2018-01-09] MEDS: Insulin NPH/Reg Insulin Hm 300 UNITS/3 ML VIAL SC SCH ×3 (08:48→16:56)
[2018-01-09] MEDS: Famotidine 20 MG TAB PO SCH ×2 (08:49→19:59)
[2018-01-09] MEDS: Lisinopril 5 MG TAB PO SCH ×2 (08:49→19:59)
[2018-01-09] MEDS: HYDROcodone/Acetaminophen 5/325 mg Tablet PO PRN ×3 (09:39→19:57)
--- NOTE | 2018-01-09 11:28 | PDOC.PN ---
- Subjective Encounter Start Date: 01/09/18 Encounter Start Time: 11:25 Subjective: seen & examined. feels well. no new complaints -: wound looks better .examined w wound care.all qs answered - Objective Resuscitation Status: Resuscitation Status FULL:Full Resuscitation MAR Reviewed: Yes Vital Signs & Weight: Vital Signs (12 hours) Temp Pulse Resp BP BP BP Pulse Ox 01/09/18 11:24 98.5 F 92 16 127/83 97 01/09/18 08:49 93 180/115 H 01/09/18 08:00 98.3 F 93 16 98 01/09/18 07:11 98.3 F 93 16 172/108 H 98 Weight Admit Weight 181 lb Weight 191 lb 12.8 oz I&O: 01/08/18 01/09/18 01/10/18 06:59 06:59 06:59 Intake Total 2523 2676 Output Total 700 Balance 1823 2676 Result Diagrams: 01/08/18 04:51 01/08/18 04:51 Additional Labs: Accuchecks 01/09/18 01/08/18 01/08/18 04:27 20:12 16:32 POC Glucose 166 H 116 H 99 01/08/18 11:21 POC Glucose 186 H Microbiology 01/05/18 19:00 Urine clean catch Urine Culture - Final Staphylococcus aureus 01/06/18 21:50 Toe - Right Bacterial Culture - Preliminary 01/06/18 21:50 Toe - Right Anaerobic Culture - Preliminary 01/05/18 17:43 Venous blood - Left Arm Blood Culture - Preliminary NO GROWTH AT 48 HOURS 01/05/18 17:38 Venous blood - Right Arm Blood Culture - Preliminary NO GROWTH AT 48 HOURS labs reviewede Phys Exam - Physical Examination Constitutional: NAD HEENT: PERRLA, moist MMs, sclera anicteric, oral pharynx no lesions Neck: no nodes, no JVD, supple, full ROM Respiratory: no wheezing, no rales, no rhonchi, clear to auscultation bilateral Cardiovascular: RRR, no significant murmur, no rub Gastrointestinal: soft, non-tender, no distention, positive bowel sounds Musculoskeletal: no edema, pulses present Neurological: non-focal, normal sensation, moves all 4 limbs Psychiatric: normal affect, A&O x 3 Skin: no rash Dx/Plan (1) Foot osteomyelitis, right Code(s): M86.9 - OSTEOMYELITIS, UNSPECIFIED Status: Acute Comment: s/p amputation (2) Sepsis Code(s): A41.9 - SEPSIS, UNSPECIFIED ORGANISM Status: Acute (3) Uncontrolled diabetes mellitus Code(s): E11.65 - TYPE 2 DIABETES MELLITUS WITH HYPERGLYCEMIA Status: Acute - Plan plan discussed w/ family, continue antibiotics, 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 final cx pending. -: wound care & wound vac to be arrnaged -: Insulin education,diabetic educatio,PCP referral done -: likley DC soon once Cx results back for Dc ABx. * . Review of Systems - Review of Systems Constitutional: negative: fever, chills, sweats, weakness, malaise, other Respiratory: negative: Cough, Dry, Shortness of Breath, Hemoptysis, SOB with Excertion, Pleuritic Pain, Sputum, Wheezing Cardiovascular: negative: chest pain, palpitations, orthopnea, paroxysmal nocturnal dyspnea, edema, light headedness, other Gastrointestinal: negative: Nausea, Vomiting, Abdominal Pain, Diarrhea, Constipation, Melena, Hematochezia, Other Genitourinary: negative: Dysuria, Frequency, Incontinence, Hematuria, Retention , Other Musculoskeletal: negative: Neck Pain, Shoulder Pain, Arm Pain, Back Pain, Hand Pain, Leg Pain, Foot Pain, Other Neurological: negative: Weakness, Numbness, Incoordination, Change in Speech, Confusion, Seizures, Other - Medications/Allergies Allergies/Adverse Reactions: Allergies Allergy/AdvReac Type Severity Reaction Status Date / Time No Known Allergies Allergy Unverified 01/05/18 17:17 Medications: Current Medications Acetaminophen (Tylenol) 1,000 mg PO Q6H PRN PRN Reason: Moderate to Severe Pain (6-10) Last Admin: 01/07/18 18:35 Dose: 1,000 mg Hydrocodone Bitart/Acetaminophen ([place] 5/325) 1 tab PO Q4H PRN PRN Reason: Moderate Pain (4-6) Last Admin: 01/09/18 09:39 Dose: 1 tab Al Hydroxide/Mg Hydroxide (Maalox) 30 ml PO Q6H PRN PRN Reason: Heartburn or Indigestion Benzonatate (Tessalon) 100 mg PO Q4H PRN PRN Reason: Cough Bisacodyl (Dulcolax) 10 mg PO DAILYPRN PRN PRN Reason: Constipation Last Admin: 01/08/18 13:13 Dose: 10 mg Calcium Carbonate (Tums) 1,000 mg PO Q4H PRN PRN Reason: Heartburn or Indigestion Clonidine (Catapres) 0.1 mg PO Q4H PRN PRN Reason: Systolic BP > 160 Last Admin: 01/06/18 23:06 Dose: 0.1 mg Dextrose/Water (Dextrose 50%) 25 gm SLOW IVP PRN PRN PRN Reason: Hypoglycemia Enoxaparin Sodium (Lovenox) 40 mg SC 0900 [facility] Last Admin: 01/09/18 08:48 Dose: 40 mg Famotidine (Pepcid) 20 mg PO BID [facility] Last Admin: 01/09/18 08:49 Dose: 20 mg Glimepiride (Amaryl) 2 mg PO QA-[facility] Last Admin: 01/09/18 08:48 Dose: 2 mg Glucagon (Glucagon) 1 mg IM PRN PRN PRN Reason: Hypoglycemia Guaifenesin (Robitussin Sf) 200 mg PO Q4H PRN PRN Reason: Cough Hydralazine HCl (Apresoline) 10 mg SLOW IVP Q4H PRN PRN Reason: Systolic BP > 170 Dextrose/Water (D5w) 1,000 mls @ 0 mls/hr IV .Q0M PRN; As Directed PRN Reason: Hypoglycemia Piperacillin Sod/Tazobactam (Sod 3.375 gm/ Sodium Chloride) 100 mls @ 200 mls/ hr IVPB Q6HR [facility] Last Admin: 01/09/18 05:00 Dose: 100 mls Vancomycin HCl 1 gm/ Device 200 mls @ 200 mls/hr IVPB Q8HR [facility] Last Admin: 01/09/18 06:04 Dose: 200 mls Ibuprofen (Motrin) 600 mg PO Q6H PRN PRN Reason: Pain 1-3 Insulin Human Isoph/Insulin Regular (Humulin 70/30) 15 units SC AC [facility] Last Admin: 01/09/18 08:48 Dose: 15 unit Insulin Human Lispro (Humalog) 0 units SC .MODERATE SLIDING SC PRN PRN Reason: Moderate Correctional Scale Last Admin: 01/08/18 05:36 Dose: 4 unit Insulin Human Lispro (Humalog) 0 units SC .BEDTIME SLIDING SC PRN PRN Reason: Bedtime Correctional Scale Last Admin: 01/07/18 21:36 Dose: 2 unit Lisinopril (Zestril) 5 mg PO BID [facility] Last Admin: 01/09/18 08:49 Dose: 5 mg Loratadine (Claritin) 10 mg PO DAILYPRN PRN PRN Reason: Sinus Symptoms Lorazepam (Ativan) 1 mg PO Q4H PRN PRN Reason: Anxiety/Agitation Miscellaneous Medication (Pharmacy To Dose) 1 each IVPB PRN PRN PRN Reason: . Nitroglycerin (Nitrostat) 0.4 mg SL Q5MIN PRN PRN Reason: Chest Pain Ondansetron HCl (Zofran) 4 mg IVP Q6H PRN PRN Reason: Nausea/Vomiting Senna (Senokot) 2 tab PO HSPRN PRN PRN Reason: Constipation Tramadol HCl (Ultram) 100 mg PO Q6H PRN PRN Reason: Pain 4-6 Last Admin: 01/07/18 21:33 Dose: 100 mg
--- NOTE | 2018-01-09 20:58 | PRG ---
DATE OF SERVICE: 01/09/2018 Mr. Aguila is doing well after amputation of his great toe distal proximal phalanx. Wound looks good t satinder. Wound VAC was removed. There is no evidence of infection. There was good bleeding in the tis sues. Cultures are pending from 01/06/2018. He had a wound VAC process that is undergoing Anticipa te discharge home on oral antibiotics in the next 24-48 hours with follow up in outpatient wound care Mondays and . I can be called in outpatient wound care to view the foot. Weightbear as to lerated. I will see the patient as needed this hospitalization. Please call if necessary.
[2018-01-10] MEDS: Piperacillin/Tazobactam 3.375 GM in Sodium Chloride 0.9% 100 ML IVPB SCH ×4 (05:04→23:16)
[2018-01-10] MEDS: HumaLOG 300 UNITS/3 ML VIAL SC PRN (05:06)
[2018-01-10] MEDS: HYDROcodone/Acetaminophen 5/325 mg Tablet PO PRN (05:09)
[2018-01-10] MEDS: Vancomycin HCl 1 GM in Premix Bag 1 BAG IVPB SCH (06:07)
[2018-01-10] MEDS: Insulin NPH/Reg Insulin Hm 300 UNITS/3 ML VIAL SC SCH ×3 (09:05→18:45)
[2018-01-10] MEDS: Famotidine 20 MG TAB PO SCH ×2 (09:06→20:13)
[2018-01-10] MEDS: Enoxaparin Sodium 40 MG/0.4 ML SYRINGE SC SCH (09:06)
[2018-01-10] MEDS: Lisinopril 5 MG TAB PO SCH ×2 (09:06→20:13)
[2018-01-10] MEDS: Glimepiride 2 MG TAB PO SCH (09:06)
[2018-01-10 13:02] LABS: Vancomycin, Trough 27.5 ug/mL
[2018-01-10] MEDS: Acetaminophen 500 MG TAB PO PRN (14:04)
--- NOTE | 2018-01-10 16:12 | PDOC.PN ---
- Subjective Encounter Start Date: 01/10/18 Encounter Start Time: 16:10 Subjective: feels slightly nauseated .no vomiting/AP/diarrhea - Objective Resuscitation Status: Resuscitation Status FULL:Full Resuscitation MAR Reviewed: Yes Vital Signs & Weight: Vital Signs (12 hours) Temp Pulse Resp BP BP Pulse Ox 01/10/18 09:06 87 145/84 H 01/10/18 08:10 98.6 F 87 22 H 145/84 H 98 01/10/18 08:00 98.6 F 87 22 H 98 Weight Admit Weight 181 lb Weight 191 lb 12.8 oz I&O: 01/09/18 01/10/18 01/11/18 06:59 06:59 06:59 Intake Total 2676 3090 Balance 2676 3090 Result Diagrams: 01/08/18 04:51 01/08/18 04:51 Additional Labs: Accuchecks 01/10/18 01/10/18 01/09/18 10:53 05:07 19:57 POC Glucose 165 H 222 H 116 H 01/09/18 16:10 POC Glucose 107 Microbiology 01/05/18 19:00 Urine clean catch Urine Culture - Final Staphylococcus aureus 01/06/18 21:50 Toe - Right Bacterial Culture - Preliminary 01/06/18 21:50 Toe - Right Anaerobic Culture - Preliminary 01/05/18 17:43 Venous blood - Left Arm Blood Culture - Preliminary NO GROWTH AT 48 HOURS 01/05/18 17:38 Venous blood - Right Arm Blood Culture - Preliminary NO GROWTH AT 48 HOURS labs reviewed Phys Exam - Physical Examination Constitutional: NAD HEENT: PERRLA, moist MMs, sclera anicteric, oral pharynx no lesions Neck: no nodes, no JVD, supple, full ROM Respiratory: no wheezing, no rales, no rhonchi, clear to auscultation bilateral Cardiovascular: RRR, no significant murmur Gastrointestinal: soft, non-tender, no distention, positive bowel sounds Musculoskeletal: no edema, pulses present R foot in dressings Neurological: non-focal, normal sensation, moves all 4 limbs Psychiatric: normal affect, A&O x 3 Skin: no rash Dx/Plan (1) Foot osteomyelitis, right Code(s): M86.9 - OSTEOMYELITIS, UNSPECIFIED Status: Acute Comment: s/p amputation (2) Sepsis Code(s): A41.9 - SEPSIS, UNSPECIFIED ORGANISM Status: Acute (3) Uncontrolled diabetes mellitus Code(s): E11.65 - TYPE 2 DIABETES MELLITUS WITH HYPERGLYCEMIA Status: Acute - Plan plan discussed w/ family, continue antibiotics, out of bed/ambulate, DVT proph w /SCDs Discussed Diabetes in detail again.all scrpits provided. -: Diabetic education and insulin education done.cont ISS here w accuchecks -: cont empric ABx.final Cx pending.DC on appropriate PO ABx -: follow pathology results. Clean margin on amputation -: OP F/U w wound care/wound vac .PCP and GS . * . Review of Systems - Review of Systems Constitutional: negative: fever, chills, sweats, weakness, malaise, other ENT: negative: Ear Pain, Ear Discharge, Nose Pain, Nose Discharge, Nose Congestion, Mouth Pain, Mouth Swelling, Throat Pain, Throat Swelling, Other Respiratory: negative: Cough, Dry, Shortness of Breath, Hemoptysis, SOB with Excertion, Pleuritic Pain, Sputum, Wheezing Cardiovascular: negative: chest pain, palpitations, orthopnea, paroxysmal nocturnal dyspnea, edema, light headedness, other Gastrointestinal: negative: Nausea, Vomiting, Abdominal Pain, Diarrhea, Constipation, Melena, Hematochezia, Other Genitourinary: negative: Dysuria, Frequency, Incontinence, Hematuria, Retention , Other Musculoskeletal: negative: Neck Pain, Shoulder Pain, Arm Pain, Back Pain, Hand Pain, Leg Pain, Foot Pain, Other Neurological: negative: Weakness, Numbness, Incoordination, Change in Speech, Confusion, Seizures, Other - Medications/Allergies Allergies/Adverse Reactions: Allergies Allergy/AdvReac Type Severity Reaction Status Date / Time No Known Allergies Allergy Unverified 01/05/18 17:17 Medications: Current Medications Acetaminophen (Tylenol) 1,000 mg PO Q6H PRN PRN Reason: Moderate to Severe Pain (6-10) Last Admin: 01/10/18 14:04 Dose: 1,000 mg Hydrocodone Bitart/Acetaminophen ([place] 5/325) 1 tab PO Q4H PRN PRN Reason: Moderate Pain (4-6) Last Admin: 01/10/18 05:09 Dose: 1 tab Al Hydroxide/Mg Hydroxide (Maalox) 30 ml PO Q6H PRN PRN Reason: Heartburn or Indigestion Benzonatate (Tessalon) 100 mg PO Q4H PRN PRN Reason: Cough Bisacodyl (Dulcolax) 10 mg PO DAILYPRN PRN PRN Reason: Constipation Last Admin: 01/08/18 13:13 Dose: 10 mg Calcium Carbonate (Tums) 1,000 mg PO Q4H PRN PRN Reason: Heartburn or Indigestion Clonidine (Catapres) 0.1 mg PO Q4H PRN PRN Reason: Systolic BP > 160 Last Admin: 01/06/18 23:06 Dose: 0.1 mg Dextrose/Water (Dextrose 50%) 25 gm SLOW IVP PRN PRN PRN Reason: Hypoglycemia Enoxaparin Sodium (Lovenox) 40 mg SC 0900 [facility] Last Admin: 01/10/18 09:06 Dose: 40 mg Famotidine (Pepcid) 20 mg PO BID [facility] Last Admin: 01/10/18 09:06 Dose: 20 mg Glimepiride (Amaryl) 2 mg PO [facility] Last Admin: 01/10/18 09:06 Dose: 2 mg Glucagon (Glucagon) 1 mg IM PRN PRN PRN Reason: Hypoglycemia Guaifenesin (Robitussin Sf) 200 mg PO Q4H PRN PRN Reason: Cough Hydralazine HCl (Apresoline) 10 mg SLOW IVP Q4H PRN PRN Reason: Systolic BP > 170 Dextrose/Water (D5w) 1,000 mls @ 0 mls/hr IV .Q0M PRN; As Directed PRN Reason: Hypoglycemia Piperacillin Sod/Tazobactam (Sod 3.375 gm/ Sodium Chloride) 100 mls @ 200 mls/ hr IVPB Q6HR [facility] Last Admin: 01/10/18 12:27 Dose: 100 mls Vancomycin HCl 1 gm/ Device 200 mls @ 200 mls/hr IVPB 1000,2200 [facility] Ibuprofen (Motrin) 600 mg PO Q6H PRN PRN Reason: Pain 1-3 Insulin Human Isoph/Insulin Regular (Humulin 70/30) 15 units SC [facility] Last Admin: 01/10/18 12:28 Dose: 15 unit Insulin Human Lispro (Humalog) 0 units SC .MODERATE SLIDING SC PRN PRN Reason: Moderate Correctional Scale Last Admin: 01/10/18 05:06 Dose: 4 unit Insulin Human Lispro (Humalog) 0 units SC .BEDTIME SLIDING SC PRN PRN Reason: Bedtime Correctional Scale Last Admin: 01/07/18 21:36 Dose: 2 unit Lisinopril (Zestril) 5 mg PO BID [facility] Last Admin: 01/10/18 09:06 Dose: 5 mg Loratadine (Claritin) 10 mg PO DAILYPRN PRN PRN Reason: Sinus Symptoms Lorazepam (Ativan) 1 mg PO Q4H PRN PRN Reason: Anxiety/Agitation Miscellaneous Medication (Pharmacy To Dose) 1 each IVPB PRN PRN PRN Reason: . Nitroglycerin (Nitrostat) 0.4 mg SL Q5MIN PRN PRN Reason: Chest Pain Ondansetron HCl (Zofran) 4 mg IVP Q6H PRN PRN Reason: Nausea/Vomiting Senna (Senokot) 2 tab PO HSPRN PRN PRN Reason: Constipation Tramadol HCl (Ultram) 100 mg PO Q6H PRN PRN Reason: Pain 4-6 Last Admin: 01/07/18 21:33 Dose: 100 mg
[2018-01-10] MEDS ORDERED: Vancomycin HCl 1 GM in Premix Bag 1 BAG IVPB SCH (22:00)
[2018-01-11] MEDS: Piperacillin/Tazobactam 3.375 GM in Sodium Chloride 0.9% 100 ML IVPB SCH (05:27)
[2018-01-11] MEDS: Insulin NPH/Reg Insulin Hm 300 UNITS/3 ML VIAL SC SCH ×2 (07:55→12:02)
[2018-01-11] MEDS: Famotidine 20 MG TAB PO SCH (07:57)
[2018-01-11] MEDS: Enoxaparin Sodium 40 MG/0.4 ML SYRINGE SC SCH (07:57)
[2018-01-11] MEDS: Lisinopril 5 MG TAB PO SCH (07:58)
[2018-01-11] MEDS: HYDROcodone/Acetaminophen 5/325 mg Tablet PO PRN (07:59)
[2018-01-11] MEDS ORDERED: Amoxicillin/Potassium Clav 875 MG TAB PO SCH (09:00)
[2018-01-11] MEDS: Glimepiride 2 MG TAB PO SCH (10:23)
--- NOTE | 2018-01-11 13:07 | PDOC.PN ---
- Subjective Encounter Start Date: 01/11/18 Encounter Start Time: 07:00 Subjective: feels better, no complaints - Objective Resuscitation Status: Resuscitation Status FULL:Full Resuscitation MAR Reviewed: Yes Vital Signs & Weight: Vital Signs (12 hours) Temp Pulse Resp BP BP Pulse Ox 01/11/18 08:00 98.4 F 97 22 H 90 L 01/11/18 07:58 97 133/80 01/11/18 07:54 98.4 F 97 22 H 133/80 90 L Weight Admit Weight 181 lb Weight 191 lb 12.8 oz I&O: 01/10/18 01/11/18 01/12/18 06:59 06:59 06:59 Intake Total 3090 2310 Balance 3090 2310 Result Diagrams: 01/08/18 04:51 01/08/18 04:51 Additional Labs: Accuchecks 01/11/18 01/11/18 01/11/18 11:06 04:58 02:18 POC Glucose 175 H 201 H 195 H 01/10/18 01/10/18 01/10/18 20:03 16:52 16:07 POC Glucose 150 H 102 56 L* Phys Exam - Physical Examination HEENT: PERRLA, moist MMs Neck: no JVD, supple Respiratory: no wheezing, no rales Cardiovascular: RRR, no significant murmur Gastrointestinal: soft, non-tender, positive bowel sounds Musculoskeletal: no edema, pulses present Neurological: non-focal, moves all 4 limbs right foot in wound vac Psychiatric: A&O x 3 Dx/Plan (1) Foot osteomyelitis, right Code(s): M86.9 - OSTEOMYELITIS, UNSPECIFIED Status: Acute Qualifiers: Osteomyelitis type: unspecified type Qualified Code(s): M86.9 - Osteomyelitis, unspecified Comment: s/p amputation of right gr toe (2) Uncontrolled diabetes mellitus Code(s): E11.65 - TYPE 2 DIABETES MELLITUS WITH HYPERGLYCEMIA Status: Chronic Qualifiers: Diabetes mellitus type: type 2 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 Review of Systems - Medications/Allergies Allergies/Adverse Reactions: Allergies Allergy/AdvReac Type Severity Reaction Status Date / Time No Known Allergies Allergy Unverified 01/05/18 17:17 Medications: Current Medications Acetaminophen (Tylenol) 1,000 mg PO Q6H PRN PRN Reason: Moderate to Severe Pain (6-10) Last Admin: 01/10/18 14:04 Dose: 1,000 mg Hydrocodone Bitart/Acetaminophen ([place] 5/325) 1 tab PO Q4H PRN PRN Reason: Moderate Pain (4-6) Last Admin: 01/11/18 07:59 Dose: 1 tab Al Hydroxide/Mg Hydroxide (Maalox) 30 ml PO Q6H PRN PRN Reason: Heartburn or Indigestion Amoxicillin/Clavulanate Potassium (Augmentin) 875 mg PO Q12HR [facility] Last Admin: 01/11/18 10:22 Dose: 875 mg Benzonatate (Tessalon) 100 mg PO Q4H PRN PRN Reason: Cough Bisacodyl (Dulcolax) 10 mg PO DAILYPRN PRN PRN Reason: Constipation Last Admin: 01/08/18 13:13 Dose: 10 mg Calcium Carbonate (Tums) 1,000 mg PO Q4H PRN PRN Reason: Heartburn or Indigestion Clonidine (Catapres) 0.1 mg PO Q4H PRN PRN Reason: Systolic BP > 160 Last Admin: 01/06/18 23:06 Dose: 0.1 mg Dextrose/Water (Dextrose 50%) 25 gm SLOW IVP PRN PRN PRN Reason: Hypoglycemia Enoxaparin Sodium (Lovenox) 40 mg SC 0900 [facility] Last Admin: 01/11/18 07:57 Dose: Not Given Famotidine (Pepcid) 20 mg PO BID [facility] Last Admin: 01/11/18 07:57 Dose: 20 mg Glimepiride (Amaryl) 2 mg PO QAM-WM [facility] Last Admin: 01/11/18 10:23 Dose: 2 mg Glucagon (Glucagon) 1 mg IM PRN PRN PRN Reason: Hypoglycemia Guaifenesin (Robitussin Sf) 200 mg PO Q4H PRN PRN Reason: Cough Hydralazine HCl (Apresoline) 10 mg SLOW IVP Q4H PRN PRN Reason: Systolic BP > 170 Dextrose/Water (D5w) 1,000 mls @ 0 mls/hr IV .Q0M PRN; As Directed PRN Reason: Hypoglycemia Ibuprofen (Motrin) 600 mg PO Q6H PRN PRN Reason: Pain 1-3 Insulin Human Isoph/Insulin Regular (Humulin 70/30) 15 units SC [facility] Last Admin: 01/11/18 12:02 Dose: 15 unit Insulin Human Lispro (Humalog) 0 units SC .MODERATE SLIDING SC PRN PRN Reason: Moderate Correctional Scale Last Admin: 01/10/18 05:06 Dose: 4 unit Insulin Human Lispro (Humalog) 0 units SC .BEDTIME SLIDING SC PRN PRN Reason: Bedtime Correctional Scale Last Admin: 01/07/18 21:36 Dose: 2 unit Lisinopril (Zestril) 5 mg PO BID [facility] Last Admin: 01/11/18 07:58 Dose: 5 mg Loratadine (Claritin) 10 mg PO DAILYPRN PRN PRN Reason: Sinus Symptoms Lorazepam (Ativan) 1 mg PO Q4H PRN PRN Reason: Anxiety/Agitation Metformin HCl (Glucophage) 500 mg PO BID-[facility] Miscellaneous Medication (Pharmacy To Dose) 1 each IVPB PRN PRN PRN Reason: . Nitroglycerin (Nitrostat) 0.4 mg SL Q5MIN PRN PRN Reason: Chest Pain Ondansetron HCl (Zofran) 4 mg IVP Q6H PRN PRN Reason: Nausea/Vomiting Senna (Senokot) 2 tab PO HSPRN PRN PRN Reason: Constipation Sodium Chloride (Flush - Normal Saline) 10 ml IVF Q12HR [facility] Last Admin: 01/11/18 10:23 Dose: 10 ml Sodium Chloride (Flush - Normal Saline) 10 ml IVF PRN PRN PRN Reason: Saline Flush Tramadol HCl (Ultram) 100 mg PO Q6H PRN PRN Reason: Pain 4-6 Last Admin: 01/07/18 21:33 Dose: 100 mg
[2018-01-11 14:34] VITALS: TEMP 97.6
[2018-01-11 14:55] VITALS: BP 143/91
[2018-01-11] MEDS: cloNIDine 0.1 MG TAB PO PRN (14:55)
[2018-01-11] MEDS ORDERED: metFORMIN 500 MG TAB PO SCH (17:00)
--- NOTE | 2018-01-12 10:55 | DIS ---
DATE OF ADMISSION: 01/05/2018 DATE OF DISCHARGE: 01/11/2018 DISCHARGE DISPOSITION: To home. PRIMARY DISCHARGE DIAGNOSES: Right great toe osteomyelitis, status post amputation of right great to e; diabetes mellitus type 2, uncontrolled due to noncompliance with medication. PROCEDURES DONE DURING HOSPITALIZATION: The patient has had lower extremity MRI done which showed os teomyelitis of right great toe distal phalanx with suggestion of interphalangeal septic arthritis. T he patient also had a draining abscess measuring 1.6 x 1.1 x 1.5 cm on the MRI. He had amputation of right great toe done by Dr. Grayson on 01/06/2018. Wound cultures growing on aerobic bacteria, which is currently pending. Blood cultures x2 no growth. White count of 5 on the day of discharge with H and H of 10 and 31, platelet count 244, had a white count of 12 on the day of admission with 81% alexis trophils. Hemoglobin A1c was 11.5. DISCHARGE MEDICATIONS: Augmentin 875 mg p.o. twice daily for another 8 days, glipizide 5 mg daily, m etformin 500 mg p.o. twice daily, Motrin p.r.n. for pain, lisinopril 5 mg daily. ALLERGIES: No known drug allergies. INPATIENT CONSULTS: Dr. Grayson for General Surgery. DISCHARGE PLAN: The patient to follow up with Dr. Grayson as advised and wound care as well and prima care physician in 1 week. BRIEF COURSE DURING HOSPITALIZATION: The patient initially came to ER with complaints of right great toe wound, which has been present for the last 3 weeks with worsening pain, swelling, and drainage. He had preliminary workup done which was suspicious for osteomyelitis. This was confirmed with MRI. The patient had consultation with Dr. Grayson. He subsequently had osteomyelitis of right great toe done. His wound has been placed in wound VAC and outpatient wound VAC has been arranged. All throu gh his stay was on IV antibiotics and has been transitioned over to oral Augmentin. He has been gillian red by Dr. Grayson for discharge today. The patient is otherwise hemodynamically stable. He was coun seled with regards to medication compliance. The patient has been advised to check fingerstick gluco se twice daily for a period of 10 days and record to follow up with primary care physician for change s in his diabetic medications. He was on metformin before and has been placed on lower dose of metfo rmin twice daily along with glipizide at the time of discharge. Please see a [id number] documentat ion on [facility] for the day of discharge.
== END 2018-01-11 16:14 | disposition home or self-care (01) | DRG 616 ==
LOC: 2NO 16:49 → T4-B 01-07 11:09
PROVIDERS: ADMIT Internal Medicine; ATTEND Internal Medicine
PROC: 0Y6P0Z1 Detachment at Right 1st Toe, High, Open Approach (ICD-10-PCS; principal; 2018-01-06)
DX: E11.69 Type 2 diabetes mellitus with other specified complication (principal); A41.9 Sepsis, unspecified organism; M86.8X7 Other osteomyelitis, ankle and foot; E11.65 Type 2 diabetes mellitus with hyperglycemia; Z79.4 Long term (current) use of insulin; Z91.14 Patient's other noncompliance with medication regimen; Z83.3 Family history of diabetes mellitus; Z82.49 Family history of ischemic heart disease and other diseases of the circulatory system
CPT/HCPCS: 36415; 36416; 80048; 80053; 80202; 81003; 81015; 83036; 85025; 87040; 87070; 87076; 87077; 87086; 87186; 87205; 88305; 88311; J1650; J1885; J2001; J2405; J2543; J2704; J3010; J3370; J7050

== ENCOUNTER 2018-01-12 14:31 | Outpatient (CLI) | payer OTHER, SELFPAY | END 2018-01-12 14:32 | disposition home or self-care (01) | LOC: WCC 14:31 | PROVIDERS: ATTEND Family Medicine | DX: T81.89XD Other complications of procedures, not elsewhere classified, subsequent encounter (principal); Z89.421 Acquired absence of other right toe(s) | CPT/HCPCS: 97605 ==

== ENCOUNTER 2018-01-16 15:59 | Outpatient (CLI) | payer OTHER, SELFPAY ==
[~2018-01-16 15:59] MED LIST: Lidocaine 4% Topical Sol 50 ML BOT ONE; Sodium Chloride 0.9% 15 ML NEB ONE
== END 2018-01-16 16:00 | disposition home or self-care (01) ==
LOC: WCC 15:59
PROVIDERS: ATTEND Family Medicine
DX: T81.89XD Other complications of procedures, not elsewhere classified, subsequent encounter (principal); Z89.421 Acquired absence of other right toe(s)
CPT/HCPCS: 97605; A4218; J2001

== ENCOUNTER 2018-01-16 16:50 | Emergency (ER) | payer SELFPAY | END 2018-01-16 18:23 | disposition home or self-care (01) | LOC: ERS 16:50 | DX: I95.9 Hypotension, unspecified (principal); E11.9 Type 2 diabetes mellitus without complications | CPT/HCPCS: 99283 ==

== ENCOUNTER 2018-01-19 08:28 | Outpatient (CLI) | payer OTHER, SELFPAY ==
[2018-01-19] MEDS ORDERED: Sodium Chloride 0.9% 15 ML NEB ONE (10:32)
== END 2018-01-19 08:29 | disposition home or self-care (01) ==
LOC: WCC 08:28
PROVIDERS: ATTEND Family Medicine
DX: T81.89XD Other complications of procedures, not elsewhere classified, subsequent encounter (principal); Z89.421 Acquired absence of other right toe(s)
CPT/HCPCS: 97605; A4218

== ENCOUNTER 2018-01-23 13:59 | Outpatient (CLI) | payer OTHER, SELFPAY ==
[~2018-01-23 13:59] MED LIST changes: -Lidocaine 4% Topical Sol 50 ML BOT ONE
== END 2018-01-23 14:00 | disposition home or self-care (01) ==
LOC: WCC 13:59
PROVIDERS: ATTEND Family Medicine
DX: T81.89XD Other complications of procedures, not elsewhere classified, subsequent encounter (principal); Z89.421 Acquired absence of other right toe(s)
CPT/HCPCS: 97605; A4218

== ENCOUNTER 2018-01-26 14:02 | Outpatient (CLI) | payer SELFPAY | END 2018-01-26 14:03 | disposition home or self-care (01) | LOC: WCC 14:02 | PROVIDERS: ATTEND Family Medicine | DX: T81.89XD Other complications of procedures, not elsewhere classified, subsequent encounter (principal); Z89.421 Acquired absence of other right toe(s) | CPT/HCPCS: 97605 ==

== ENCOUNTER 2018-01-30 13:25 | Outpatient (CLI) | payer SELFPAY ==
--- NOTE | 2018-01-30 19:59 | HP ---
DATE OF SERVICE: 01/30/2018 HISTORY OF PRESENT ILLNESS: Mr. Edward Aguila is a very pleasant 47-year-old gentleman who p resents to the Wound Center for evaluation of a wound of the right great toe subsequent to amputation of the right great toe through the proximal phalanx on 01/06/[address] Jameson Grayson. At surgery , the wound was left open for healing by secondary intention and negative pressure therapy was initia panchito subsequent to surgery during the patient's hospital stay. Upon discharge from [facility], the patient was referred to the Wound Center for assistance with dressing changes of the wound VAC. The patient was discharged to home on Augmentin 875/125 p.o. b.i.d. x8 days. PAST MEDICAL HISTORY: Diabetes mellitus. PAST SURGICAL HISTORY: Amputation of right great toe through the proximal phalanx. MEDICATIONS: 1. Metformin. 2. Glipizide. ALLERGIES: No known diagnosed allergies. SOCIAL HISTORY: Significant for rare cigar use and the social consumption of alcohol. FAMILY HISTORY: Significant for diabetes mellitus. The patient states that his mother and grandmoth er were both diagnosed with diabetes mellitus. Family history is also significant for coronary arter y disease. The patient states that his mother was diagnosed with coronary artery disease. PHYSICAL EXAMINATION: VITAL SIGNS: Temperature 97.7, pulse 101, respirations 18, blood pressure 94/60. Accu-Chek 180. GENERAL: A 47-year-old gentleman sitting on chair in examination room, in no acute distress. HEENT: Normocephalic, atraumatic. NECK: No nuchal rigidity. CHEST: Clear to auscultation. CARDIAC: Regular rate and rhythm. ABDOMEN: Soft. EXTREMITIES: A wound of the right great toe is present which measures approximately 2.0 x 1.0 cm. G ranulation tissue is present within the wound margins. Nonviable tissue present within the wound mar gins was debrided with an excisional full-thickness debridement. No purulent drainage is associated with the wound. No erythema of the skin surrounding the wound is present. No maceration of the skin of the periwound is noted. A dorsalis pedis pulse is palpable on the right. No significant edema o f the right foot is present on exam today. No bone is exposed within the wound margins and no bone i s or palpable within the wound margins on exam today. NEUROLOGIC: Grossly nonfocal. ASSESSMENT AND PLAN: 1. Right great toe wound subsequent to amputation of the right great toe through the proximal phalan x on 01/06/[address] Jameson Grayson. Negative pressure therapy was initiated subsequent to surgery during the patient's hospital stay and will be continued with dressing changes of the wound VAC 3 ti mes per week here in the Wound Center. The patient will be seen by Dr. Grayson in 1 week. I will see Mr. Aguila in two weeks. 2. Diabetes mellitus. The patient's Accu-Chek in clinic today is 180. The patient has been told th at for optimal wound healing, his blood glucoses should remain below 150.
== END 2018-01-30 13:26 | disposition home or self-care (01) ==
LOC: WCC 13:25
PROVIDERS: ATTEND Family Medicine
DX: S91.101A Unspecified open wound of right great toe without damage to nail, initial encounter (principal); E11.9 Type 2 diabetes mellitus without complications; Z89.411 Acquired absence of right great toe
CPT/HCPCS: 11042; 99203; A4218; G0463

== ENCOUNTER 2018-02-06 09:22 | Outpatient (CLI) | payer OTHER, SELFPAY ==
[2018-02-06] MEDS ORDERED: Sodium Chloride 0.9% 15 ML NEB ONE (21:46)
== END 2018-02-06 09:23 | disposition home or self-care (01) ==
LOC: WCC 09:22
PROVIDERS: ATTEND Family Medicine
DX: T87.89 Other complications of amputation stump (principal); Z89.421 Acquired absence of other right toe(s)
CPT/HCPCS: 97605; A4218

== ENCOUNTER 2018-02-09 09:56 | Outpatient (CLI) | payer OTHER, SELFPAY | END 2018-02-09 09:57 | disposition home or self-care (01) | LOC: WCC 09:56 | PROVIDERS: ATTEND Family Medicine | DX: T87.89 Other complications of amputation stump (principal); Z89.421 Acquired absence of other right toe(s) | CPT/HCPCS: 97605 ==

== ENCOUNTER 2018-02-13 10:48 | Outpatient (CLI) | payer OTHER, SELFPAY ==
--- NOTE | 2018-02-13 11:15 | PRG ---
DATE OF SERVICE: 02/13/2018 HISTORY: Mr. Edward Aguila is a very pleasant 47-year-old gentleman who presents to the [facility] for evaluation of a wound of the right great toe subsequent to amputation of the right great toe through the proximal phalanx on 01/06/[address] Jameson Grayson. At surgery, the wound was lef t open for healing by secondary intention and negative pressure therapy was initiated subsequent to s urgjenniffer during the patient's hospital stay. Upon discharge from [facility], th e patient was referred to the Wound Center for assistance with dressing changes of the wound VAC. Th e patient was discharged to home on Augmentin 875/125 p.o. b.i.d. x8 days. PHYSICAL EXAMINATION: VITAL SIGNS: Temperature 97.8, pulse 107, respirations 21, blood pressure 107/64. Accu-Chek 136. EXTREMITIES: The wound of the right great toe measures approximately 0.9 x 0.4 cm. Granulation tiss ue is present within the wound margins. Nonviable tissue present within the wound margins was debrid ed with an excisional full-thickness debridement. No purulent drainage is associated with the wound. No erythema of the skin surrounding the wound is present. No maceration of the skin of the periwou nd is noted. No significant edema of the right foot is present on exam today. ASSESSMENT AND PLAN: 1. Right great toe wound subsequent to amputation of the right great toe through the proximal phalan x on 01/06/[address] Jameson Grayson. Negative pressure therapy will be discontinued today. Dressi ng changes of Silvercel gauze and an Bon bandage will be initiated. These dressing changes are to be performed on a daily basis or alternatively 3 times per week after cleansing and irrigation. The [place] olgu[place]ong will be seen by Dr. Grayson in 2 weeks. I will see Mr. Aguila as needed after his evaluation by [facility]. 2. Diabetes mellitus. The patient's Accu-Chek in clinic today is 136. The patient has been reminde d that for optimal wound healing, his blood glucoses should remain below 150.
== END 2018-02-13 10:49 | disposition home or self-care (01) ==
LOC: WCC 10:48
PROVIDERS: ATTEND Family Medicine
DX: T81.89XD Other complications of procedures, not elsewhere classified, subsequent encounter (principal); E11.9 Type 2 diabetes mellitus without complications
CPT/HCPCS: 11042

== ENCOUNTER 2019-01-05 10:54 | Inpatient (IN) | payer OTHER ==
[2019-01-05] MEDS ORDERED: Ondansetron PF 4 MG/2 ML Vial ONE (12:13)
[2019-01-05 12:28] LABS: #Lymphocytes 0.8 thou/uL (1.20-3.40); #Monocytes 0.4 thou/uL (0.11-0.59); #Neutrophils 11.1 thou/uL (1.40-6.50); %Basophils 0.1 % (0.0-1.0); %Eosinophils 0.3 % (0.0-10.0); %Lymphocytes 6.5 % (21.0-51.0); %Monocytes 3.5 % (0.0-10.0); %Neutrophils 89.6 % (42.0-75.0); Hemoglobin 12.9 g/dL (14.0-18.0); Mean Corpuscular HGB CONC 33.1 g/dL (32.0-36.0); Mean Corpuscular Hemoglobin 30.4 pg (27.0-31.0); Mean Platelet Volume 10.2 fL (7.4-10.4); Platelet Count 149 thou/uL (130-400); RBC Distribution Width 11.9 % (11.5-14.5); Red Blood Cell (RBC) Count 4.24 mill/uL (4.70-6.10); White Blood Cell (WBC) Count 12.3 thou/uL (4.8-10.8)
[2019-01-05 12:49] LABS: ALT (SGPT) 11 U/L (8-55); AST (SGOT) 14 U/L (5-34); Albumin 3.7 g/dL (3.5-5.0); Alkaline Phosphatase 69 U/L (40-150); Anion Gap 12 mmol/L (10-20); BUN (Urea Nitrogen) 21 mg/dL (8.9-20.6); Bilirubin, Total 0.6 mg/dL (0.2-1.2); Calc. Creatinine Clearance 0 mL/min (70-130); Carbon Dioxide 25 mmol/L (22-29); Chloride 101 mmol/L (98-107); Estimated GFR-MDRD 71; Globulin 4.7 g/dL (2.4-3.5); Glucose 208 mg/dL (70-105); Potassium 4.5 mmol/L (3.5-5.1); Protein, Total 8.4 g/dL (6.0-8.3); Sodium 133 mmol/L (136-145)
--- NOTE | 2019-01-05 13:13 | RAD ---
RIGHT FOOT THREE VIEWS: HISTORY: Diabetic ulcer, right 2nd toe. FINDINGS: There has been amputation at the base of the proximal phalanx of the great toe. I do not see any def inite plain film evidence for osteomyelitis of the 2nd toe. A tiny cyst is seen along the lateral si de of the distal aspect of the proximal phalanx, but this is not an obvious acute erosion. Calcaneal spurs are noted. IMPRESSION: No acute findings. POS: CET
[2019-01-05] MEDS ORDERED: HYDROcodone/Acetaminophen 5/325 mg Tablet PO PRN ×2 (13:45)
[2019-01-05] MEDS ORDERED: Bisacodyl 5 MG TAB PO PRN (13:45)
[2019-01-05] MEDS ORDERED: Acetaminophen 325 MG TAB PO PRN (13:45)
[2019-01-05] MEDS ORDERED: Senokot S 8.6-50 MG TAB PO PRN (13:45)
[2019-01-05] MEDS ORDERED: Ondansetron PF 4 MG/2 ML Vial IVP PRN (13:45)
[2019-01-05] MEDS ORDERED: Dextrose 5% in Water 1,000 ML IV PRN (13:45)
[2019-01-05] MEDS ORDERED: hydrALAZINE 20 MG/ML VIAL SLOW IVP PRN (13:45)
[2019-01-05] MEDS ORDERED: Dextrose 50% Abboject 50 ML SYRINGE SLOW IVP PRN (13:45)
[2019-01-05] MEDS ORDERED: Benzonatate 100 MG CAP PO PRN (13:45)
[2019-01-05] MEDS ORDERED: Sodium Chloride 0.65% Nasal 44 ML BOT EA NARE PRN (13:45)
[2019-01-05] MEDS ORDERED: HumaLOG 300 UNITS/3 ML VIAL SC PRN (13:45)
[2019-01-05] MEDS ORDERED: Piperacillin/Tazobactam 3.375 GM VIAL ONE (13:54)
[2019-01-05 14:35] LABS: Hemoglobin A1c 9.2 % (4.0-6.0)
[2019-01-05 14:54] VITALS: BMI 22.5
--- NOTE | 2019-01-05 14:56 | HP ---
PRIMARY CARE PHYSICIAN: None. CHIEF COMPLAINT: Worsening wound in the right second toe with pain and swelling. HISTORY OF PRESENTING ILLNESS: Mr. Aguila is a 48-year-old male with known history of type 2 diabetes mellitus and diabetic foot infection in the past requiring right first toe amputation by Dr. Grayson in the past, who came to the emergency room with above-mentioned complaint. History is mainly obtained by the patient himself. Electronic medical records have been reviewed. Case has been discussed with admitting ER physician, Dr. Camargo. Mr. Aguila reports that he takes metformin at home for his diabetes, but he most commonly misses it because it gives him lots of side effects. He is unsure of his blood sugar control. About two weeks ago, he tried to cut his toenails, which was really thick and continue to cut until he got the dry skin and got some more. He developed a wound on that right second toe tip, which has been worsening since then. He started to develop pain and swelling of that toe and later it started to drain, so he decided to come to the emergency room. He denies any fever, chills, nausea, or vomiting, but he was found to have some low-grade fever in the emergency room with mild tachycardia. His examination confirmed the finding of right second toe wound. His foot x-ray did not show any evidence of bone involvement. Emergency room physician consulted with Dr. Grayson and Dr. Grayson has seen the patient in the emergency room. For now, he has been started on empiric IV antibiotics and will be admitted to medical floor for further evaluation. The patient reports that he does not have a primary care physician for now. He would like a referral to a foot doctor, but then he reports that he already has an upcoming appointment with the naphthol soaping machine operator in 2 weeks from now. The patient was found to have extensive denuded skin on both legs anteriorly as well as both knees. It seems like he has chronic wounds that he does not let scab over. He continuously picks at them until they start bleeding. PAST MEDICAL HISTORY: Diabetes mellitus, type 2; history of osteomyelitis and cellulitis of the right great toe with septic arthritis, status post amputation. PAST SURGICAL HISTORY: Right first toe amputation by Dr. Grayson in December 2017. ALLERGIES: NO KNOWN MEDICATION ALLERGIES. CURRENT MEDICATIONS: Metformin, unknown dose. SOCIAL HISTORY: No history of drug, tobacco, or alcohol abuse. He is currently working. He lives with his girlfriend. FAMILY HISTORY: Significant for diabetes mellitus and congestive heart failure in his mother. Multiple other family members also have diabetes. REVIEW OF SYSTEMS: A 14-point review of systems is done and is negative except those mentioned in history and physical. LABORATORY STUDIES: WBCs 12.3 with 89% neutrophils and ESR is 44. Serum chemistry shows sodium of 133, BUN 21, blood sugar 208. Cardiac enzymes unremarkable. C-reactive protein elevated to 0.82. X-ray of the foot by my review of the right side shows no acute findings, but soft-tissue inflammation on the second toe. PHYSICAL EXAMINATION: VITAL SIGNS: Upon presentation, blood pressure 134/92, pulse of 93, respirations 18, temperature 98, saturating 98% on room air. GENERAL: No acute distress. Awake, alert, and oriented x3. The patient does not want to stay in the hospital and would rather go home. Girlfriend is at bedside. HEENT: Mucous membrane is moist and pink. No oropharyngeal exudate or erythema. Head is normocephalic and atraumatic. Pupils are equal and reactive to light and accommodation. Extraocular movement intact. NECK: Supple without any lymphadenopathy, JVD, or bruit. CHEST: Clear to auscultation without any wheezing, rales, or rhonchi. HEART: Rate and rhythm are regular without any murmurs, rubs, or gallops. ABDOMEN: Soft, nontender, and nondistended. Positive bowel sounds. EXTREMITIES: Show extensive superficial denudation of both shins and knees with areas of patchy hyperpigmentation and hypopigmentation surrounding that. He has few scabs on these superficial wounds, which he has been picking on. Right second toe examination shows purulent fluid coming out of the tip with a shallow ulcer and extensive swelling and mild surrounding erythema. NEUROLOGIC: Nonfocal. PSYCHIATRIC: Normal affect. IMPRESSION AND PLAN: 1. Diabetic foot infection. At this time, there is no evidence of osteomyelitis. The patient has stopped following up with the Wound Care after his first toe infection. We will consult the Wound Care and General Surgery again. He is currently not septic. We will continue the empiric antibiotics for now. He has received vancomycin and Zosyn in the emergency room. Further management will depend upon the recommendations from General Surgery team. The patient does not want to stay for now, but I have requested him to not sign out against medical advice. He will greatly benefit from Podiatry referral either in-house or in the outpatient setting. He will most likely require an MRI of his right foot to rule out osteomyelitis. 2. Uncontrolled diabetes mellitus. The patient has had a high A1c's historically. We will recheck it. Metformin intolerance has reported. We will start him on glipizide and monitor. We will also start him on insulin sliding scale for now. He is encouraged to establish care with a new primary care physician and he is eager to do so. 3. History of right great toe osteomyelitis and septic arthritis, status post amputation. 4. Systemic inflammatory response syndrome secondary to diabetic foot infection. Recheck complete blood count and basic metabolic panel in the morning. We will resuscitate him with gentle intravenous fluids. 5. Deep venous thrombosis and gastrointestinal prophylaxis. DISPOSITION: Mr. Aguila will be admitted to medical floor for right second toe diabetic foot infection with SIRS. Estimated length of stay at least 2 to 3 midnights. Further management will depend upon his clinical course. Job ID: [id number]
--- NOTE | 2019-01-05 14:57 | HP ---
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 He had fever and tachycardia and is being admitted by medical service with intravenous antibiotics. Plain x-rays obtained did not reveal osteomyelitis, but does have a distal toe wound with 0.25 to 0.5 cm tract without obvious bony involvement. MRI has been ordered. ALLERGIES: NONE. TOBACCO: None. ALCOHOL: Socially. PAST SURGICAL HISTORY: Amputation of right great toe proximal phalanx that was performed last year. PAST MEDICAL HISTORY: Diabetes mellitus. REVIEW OF SYSTEMS: Ten-point noncontributory. HOME MEDICATIONS: 1. Metformin. 2. Glipizide. 3. Lisinopril. 4. Ibuprofen. 5. Augmentin. PHYSICAL EXAMINATION: LUNGS: Clear to auscultation. CARDIAC: Regular rate and rhythm without murmur or gallop. ABDOMEN: Soft and nontender. EXTREMITIES: Palpable femoral, popliteal, pedal pulses. Well-healed amputation of right great toe. Right second toe is swollen at the tip, has a wound on the distal tip that on probing extends 0.25 cm or less. There is no tracking obviously to the bone. LABORATORY DATA: White count 12 and hemoglobin 12. Basic metabolic profile normal. BUN 21. ASSESSMENT AND PLAN: Right second toe diabetic infection as he has a fever and tachycardia. Medicines admitted him for intravenous antibiotics. We will obtain MRI scan and make further recommendations pending that. I will follow him along with you. He can eat at this time with not planned surgical intervention at this time. Hopefully, this will resolve without surgical intervention. We will await the MRI scan. Job ID: [id number]
--- NOTE | 2019-01-05 16:37 | MRI ---
MRI of right foot performed with and without contrast HISTORY: Diabetic with right second toe infection. COMPARISON: Plain film examination done earlier today. Also a 01/06/2018 MRI study. FINDINGS: Postoperative changes of the great toe are noted. There is been amputation at the base of t he proximal phalanx. There are edema changes and enhancement to the residual portion of the proximal phalanx. This may just be reactive in nature given the lack of any ulcer in this region. There is some artifact of the tip of the second toe which makes evaluation the distal phalanx more di fficult but I see no evidence for osteomyelitis The remainder the marrow signal change in the forefoot is normal in appearance. IMPRESSION: No evidence of osteomyelitis of the second toe.
[2019-01-05] MEDS: Sodium Chloride 0.9% 1,000 ML IV SCH (16:55)
[2019-01-05] MEDS: Piperacillin/Tazobactam 3.375 GM in Sodium Chloride 0.9% 100 ML IVPB SCH ×2 (18:08→23:24)
[2019-01-05] MEDS: HumaLOG 300 UNITS/3 ML VIAL SC PRN (18:11)
[2019-01-05] MEDS: Vancomycin HCl 1 GM in Premix Bag 1 BAG IVPB SCH (20:39)
[2019-01-05] MEDS: Famotidine/PF 20 mg/2ml Vial SLOW IVP SCH (20:40)
[2019-01-06] MEDS: cloNIDine 0.1 MG TAB PO PRN ×2 (04:55→22:10)
[2019-01-06] MEDS: Piperacillin/Tazobactam 3.375 GM in Sodium Chloride 0.9% 100 ML IVPB SCH ×4 (05:00→23:54)
[2019-01-06 06:50] LABS: #Eosinphils 0.3 thou/uL (0.0-0.7); #Lymphocytes 1.6 thou/uL (1.20-3.40); #Monocytes 0.7 thou/uL (0.11-0.59); #Neutrophils 6.1 thou/uL (1.40-6.50); %Basophils 0.4 % (0.0-1.0); %Eosinophils 3.6 % (0.0-10.0); %Lymphocytes 18.3 % (21.0-51.0); %Neutrophils 69.8 % (42.0-75.0); Hemoglobin 11.6 g/dL (14.0-18.0); Mean Corpuscular HGB CONC 33.3 g/dL (32.0-36.0); Mean Corpuscular Hemoglobin 30.3 pg (27.0-31.0); Mean Platelet Volume 10.2 fL (7.4-10.4); Platelet Count 142 thou/uL (130-400); RBC Distribution Width 11.9 % (11.5-14.5); Red Blood Cell (RBC) Count 3.84 mill/uL (4.70-6.10); White Blood Cell (WBC) Count 8.7 thou/uL (4.8-10.8)
[2019-01-06 07:04] LABS: Anion Gap 10 mmol/L (10-20); BUN (Urea Nitrogen) 16 mg/dL (8.9-20.6); Calc. Creatinine Clearance 82 mL/min (70-130); Calcium 8.7 mg/dL (7.8-10.44); Carbon Dioxide 25 mmol/L (22-29); Chloride 103 mmol/L (98-107); Estimated GFR-MDRD 69; Glucose 255 mg/dL (70-105); Potassium 4.2 mmol/L (3.5-5.1); Sodium 134 mmol/L (136-145)
[2019-01-06] MEDS: Lisinopril 5 MG TAB PO SCH (09:53)
[2019-01-06] MEDS: Famotidine/PF 20 mg/2ml Vial SLOW IVP SCH ×2 (09:54→22:03)
[2019-01-06] MEDS: Vancomycin HCl 1 GM in Premix Bag 1 BAG IVPB SCH ×2 (09:55→23:51)
[2019-01-06] MEDS: Sodium Chloride 0.9% 1,000 ML IV SCH (09:59)
[2019-01-06] MEDS: Enoxaparin Sodium 40 MG/0.4 ML SYRINGE SC SCH (09:59)
[2019-01-06] MEDS: HumuLIN 70/30 (300 UNITS/3 ML VIAL) SC SCH ×2 (11:30→17:40)
[2019-01-06] MEDS: HumaLOG 300 UNITS/3 ML VIAL SC PRN (11:31)
--- NOTE | 2019-01-06 12:03 | EKG ---
Test Reason : Blood Pressure : / mmHG Vent. Rate : 092 BPM Atrial Rate : 092 BPM P-R Int : 156 ms QRS Dur : 084 ms QT Int : 340 ms P-R-T Axes : 059 037 047 degrees QTc Int : 420 ms Normal sinus rhythm Possible Left atrial enlargement T wave abnormality, consider lateral ischemia Abnormal ECG Anterior T wave inversions present on old EKG from 08/24/2015 Confirmed by SAMEER MOON ([id number]), mixer crane operator ARIELA BANKS ([id number]) on 01/06/2019 12:02:41 PM Referred By: Confirmed By:SAMEER MOON
--- NOTE | 2019-01-06 14:00 | PDOC.PN ---
- Subjective Encounter Start Date: 01/06/19 Encounter Start Time: 13:57 Subjective: feels much better today.no new complaints but lots of Qs -: answered appropriately -: no overnight events - Objective MAR Reviewed: Yes Vital Signs & Weight: Vital Signs (12 hours) Temp Pulse Resp BP BP Pulse Ox 01/06/19 10:51 97.5 F L 71 16 154/93 H 100 01/06/19 08:00 97.9 F 74 16 152/95 H 97 01/06/19 04:55 163/100 H 01/06/19 04:09 97.6 F 80 18 163/100 H 98 Weight Weight 190 lb I&O: 01/05/19 01/06/19 01/07/19 06:59 06:59 06:59 Intake Total 1700 Balance 1700 Result Diagrams: 01/06/19 06:10 01/06/19 06:10 Additional Labs: Accuchecks 01/06/19 01/06/19 01/05/19 10:57 05:59 20:41 POC Glucose 206 H 233 H 160 H 01/05/19 17:05 POC Glucose 180 H Microbiology 01/05/19 12:14 Venous blood - Right Arm Blood Culture - Preliminary Specimen has been received and culture in progress. No Growth to date. 01/05/19 12:05 Venous blood - Left Arm Blood Culture - Preliminary Specimen has been received and culture in progress. No Growth to date. Laboratory Tests 01/05/19 12:14 Hemoglobin A1c 9.2 H Radiology Reviewed by me: Yes (MRI R foot-no osteomyelitis) Phys Exam - Physical Examination Constitutional: NAD HEENT: PERRLA, moist MMs, sclera anicteric, oral pharynx no lesions Neck: no nodes, no JVD, supple, full ROM Respiratory: no wheezing, no rales, no rhonchi, clear to auscultation bilateral Cardiovascular: RRR, no significant murmur Gastrointestinal: soft, non-tender, no distention, positive bowel sounds Musculoskeletal: no edema, pulses present b/l superficial skin denudation shins and knees Neurological: non-focal, normal sensation, moves all 4 limbs Psychiatric: normal affect, A&O x 3 Dx/Plan (1) Diabetic foot infection Code(s): E11.628 - TYPE 2 DIABETES MELLITUS WITH OTHER SKIN COMPLICATIONS; L08.9 - LOCAL INFECTION OF THE SKIN AND SUBCUTANEOUS TISSUE, UNSP Status: Acute Comment: empiric IV ABx. MRI negative for osteo.GS following.no surgical recs for now (2) HTN (hypertension) Code(s): I10 - ESSENTIAL (PRIMARY) HYPERTENSION Status: Acute Comment: suspect high BP due to acute illness Vs Essential HTN.start Low dose Lisinopril and montor (3) Noncompliance Code(s): Z91.19 - PATIENT'S NONCOMPLIANCE W OTH MEDICAL TREATMENT AND REGIMEN Status: Chronic (4) Uncontrolled diabetes mellitus Code(s): E11.65 - TYPE 2 DIABETES MELLITUS WITH HYPERGLYCEMIA Status: Chronic Qualifiers: Diabetes mellitus type: type 2 Qualified Code(s): E11.65 - Type 2 diabetes mellitus with hyperglycemia Comment: HbA1c>9.start insulin 70/30 and Glipizide.poor tolerance to Metformin due to GI side effects.Pt and GF educated at length - Plan plan discussed w/ family, continue antibiotics, out of bed/ambulate, DVT proph w /lovenox Consult dietitian and provide isulin education.monitor Accuchecks -: CM assistance w prescription .Wound care set up for Outpt -: DC when OK w GS on PO ABx,likley tomorrow -: monitor BP -: SIRS indices improving * . Review of Systems - Review of Systems Constitutional: negative: fever, chills, sweats, weakness, malaise, other Respiratory: negative: Cough, Dry, Shortness of Breath, Hemoptysis, SOB with Excertion, Pleuritic Pain, Sputum, Wheezing Cardiovascular: negative: chest pain, palpitations, orthopnea, paroxysmal nocturnal dyspnea, edema, light headedness, other Gastrointestinal: negative: Nausea, Vomiting, Abdominal Pain, Diarrhea, Constipation, Melena, Hematochezia, Other Genitourinary: negative: Dysuria, Frequency, Incontinence, Hematuria, Retention , Other Musculoskeletal: negative: Neck Pain, Shoulder Pain, Arm Pain, Back Pain, Hand Pain, Leg Pain, Foot Pain, Other Neurological: negative: Weakness, Numbness, Incoordination, Change in Speech, Confusion, Seizures, Other - Medications/Allergies Allergies/Adverse Reactions: Allergies Allergy/AdvReac Type Severity Reaction Status Date / Time No Known Allergies Allergy Verified 01/05/19 17:39 Medications: Current Medications Acetaminophen (Tylenol) 650 mg PO Q4H PRN PRN Reason: Headache/Fever/Mild Pain (1-3) Hydrocodone Bitart/Acetaminophen ([place] 5/325) 1 tab PO Q4H PRN PRN Reason: Moderate Pain (4-6) Hydrocodone Bitart/Acetaminophen ([place]elope 5/325) 2 tab PO Q4H PRN PRN Reason: Severe Pain (7-10) Benzonatate (Tessalon) 100 mg PO Q6H PRN PRN Reason: Cough Bisacodyl (Dulcolax) 10 mg PO DAILYPRN PRN PRN Reason: Constipation Clonidine (Catapres) 0.1 mg PO Q4H PRN PRN Reason: SBP >160 ____ Last Admin: 01/06/19 04:55 Dose: 0.1 mg Dextrose/Water (Dextrose 50%) 25 gm SLOW IVP PRN PRN PRN Reason: Hypoglycemia Enoxaparin Sodium (Lovenox) 40 mg SC 0900 [facility] Last Admin: 01/06/19 09:59 Dose: 40 mg Famotidine (Pepcid) 20 mg SLOW IVP Q12HR [facility] Last Admin: 01/06/19 09:54 Dose: 20 mg Glipizide (Glucotrol Xl) 5 mg PO [facility]AM[facility] Last Admin: 01/06/19 09:53 Dose: 5 mg Glucagon (Glucagon) 1 mg IM PRN PRN PRN Reason: Hypoglycemia Hydralazine HCl (Apresoline) 10 mg SLOW IVP Q4H PRN PRN Reason: SBP > 180 and HR < 70 Dextrose/Water (D5w) 1,000 mls @ 0 mls/hr IV .Q0M PRN PRN Reason: Hypoglycemia Sodium Chloride (Normal Saline 0.9%) 1,000 mls @ 50 mls/hr IV .Q20H [facility] Last Admin: 01/06/19 09:59 Dose: Not Given Piperacillin Sod/Tazobactam (Sod 3.375 gm/ Sodium Chloride) 100 mls @ 200 mls/ hr IVPB Q6HR [facility] Last Admin: 01/06/19 11:29 Dose: 100 mls Vancomycin HCl 1 gm/ Device 200 mls @ 200 mls/hr IVPB Q12HR [facility] Last Admin: 01/06/19 09:55 Dose: 200 mls Insulin Human Isoph/Insulin Regular (Humulin 70/30) 10 units SC AC [facility] Last Admin: 01/06/19 11:30 Dose: 10 unit Insulin Human Lispro (Humalog) 0 units SC .MODERATE SLIDING SC PRN PRN Reason: Moderate Correctional Scale Last Admin: 01/06/19 11:31 Dose: 4 unit Insulin Human Lispro (Humalog) 0 units SC .BEDTIME SLIDING SC PRN PRN Reason: Bedtime Correctional Scale Lisinopril (Zestril) 5 mg PO DAILY [facility] Last Admin: 01/06/19 09:53 Dose: 5 mg Miscellaneous Medication (Pharmacy To Dose) 1 each IVPB ONE PRN PRN Reason: DOSING Stop: 02/04/19 22:29 Ondansetron HCl (Zofran) 4 mg IVP Q6H PRN PRN Reason: Nausea/Vomiting Senna/Docusate Sodium (Senokot S) 2 tab PO BID PRN PRN Reason: Constipation Sodium Chloride ([place] Nasal [place] 0.65%) 0 ml EA NARE QIDPRN PRN PRN Reason: Nasal Congestion
[2019-01-06 20:19] LABS: Vancomycin, Trough 12.2 ug/mL
[2019-01-06] MEDS: Vancomycin HCl 1.25 GM in Sodium Chloride 0.9% 250 ML 250 ML IVPB SCH (22:03)
[2019-01-07 04:27] LABS: Anion Gap 11 mmol/L (10-20); BUN (Urea Nitrogen) 13 mg/dL (8.9-20.6); Calc. Creatinine Clearance 97 mL/min (70-130); Calcium 9.1 mg/dL (7.8-10.44); Carbon Dioxide 27 mmol/L (22-29); Chloride 103 mmol/L (98-107); Estimated GFR-MDRD 83; Glucose 166 mg/dL (70-105); Potassium 3.7 mmol/L (3.5-5.1); Sodium 137 mmol/L (136-145)
[2019-01-07] MEDS: Piperacillin/Tazobactam 3.375 GM in Sodium Chloride 0.9% 100 ML IVPB SCH ×2 (06:08→13:41)
[2019-01-07] MEDS: HumaLOG 300 UNITS/3 ML VIAL SC PRN (06:26)
[2019-01-07] MEDS: Sodium Chloride 0.9% 1,000 ML IV SCH (06:27)
[2019-01-07] MEDS: HumuLIN 70/30 (300 UNITS/3 ML VIAL) SC SCH ×2 (09:25→13:45)
[2019-01-07] MEDS: Enoxaparin Sodium 40 MG/0.4 ML SYRINGE SC SCH (09:25)
[2019-01-07] MEDS: Lisinopril 5 MG TAB PO SCH (09:26)
[2019-01-07] MEDS: Famotidine/PF 20 mg/2ml Vial SLOW IVP SCH (09:27)
[2019-01-07] MEDS: Vancomycin HCl 1.25 GM in Sodium Chloride 0.9% 250 ML 250 ML IVPB SCH (09:38)
[2019-01-07 11:57] VITALS: TEMP 98.6
[2019-01-07 14:17] VITALS: BP 152/78
--- NOTE | 2019-01-07 16:41 | DIS ---
DATE OF ADMISSION: 01/05/2019 DATE OF DISCHARGE: 01/07/2019 DISCHARGE DISPOSITION: Home. PRIMARY DISCHARGE DIAGNOSIS: Right second toe diabetic ulcer with infection. SECONDARY DISCHARGE DIAGNOSES: 1. Diabetes mellitus type 2. 2. Hypertension. PROCEDURES DONE DURING HOSPITALIZATION: Right foot three view x-ray done, showed no acute findings. MRI of left lower extremity done, showed no evidence of osteomyelitis of the second toe. Blood cultures x2, no growth. Had a white count of 12 on the day of admission, discharge white count of 8.7, H and H 11 and 34, platelet count 142. Sedimentation rate was 44. BUN 13, creatinine 1.1 on the day of discharge. HbA1c 9.2. CRP 0.82. DISCHARGE MEDICATIONS: 1. Augmentin 875 mg 1 tablet twice daily for 10 days. 2. Glucotrol extended release 5 mg daily. 3. Lisinopril 5 mg daily. 4. Metformin 500 mg p.o. twice daily. ALLERGIES: NO KNOWN DRUG ALLERGIES. INPATIENT CONSULT: Dr. Grayson for General Surgery. DISCHARGE PLAN: The patient to follow up with Dr. Grayson in 10 days and primary care physician in 1 week. BRIEF COURSE DURING HOSPITALIZATION: The patient initially came to ER with complaints of right second toe pain with swelling. He was trying to clip his toenail when he sustained an injury with subsequent infection of the right second toe. He was evaluated by Dr. Grayson. The patient had a plain x-ray done, which did not reveal any osteomyelitis, and subsequent MRI done, did not show evidence of osteomyelitis. He was placed on IV antibiotics and has been transitioned to Augmentin. The patient is noncompliant with his diabetic medications and was counseled regarding the same. The dose of his metformin was lower to 500 mg twice daily as the patient had gastrointestinal side effects from it. Glipizide extended release has been added for his diabetes. He has remained hemodynamically stable, ambulating. He is cleared for discharge from Dr. Grayson. Please note, I have seen and examined the patient on the day of discharge. Job ID: [id number]
--- NOTE | 2019-01-08 08:39 | PQF ---
[employer] Crystal Reports Realform ANKITA Correia AARTI DALTON MD [id number] [facility] [id number] CLINICAL DOCUMENTATION CLARIFICATION FORM: POST DISCHARGE Addendum to original discharge summary date: ____ Late entry note date: __ DATE: 01/08/2019 ATTN: AARTI DALTON MD Please exercise your independent, professional judgment in responding to the clarification form. Clinical indicators are provided on the bottom of this form for your review Please check appropriate box(es): [ ] SIRS with Sepsis [ X ] SIRS without Sepsis [ ] Localized infection without sepsis [ ] Other diagnosis [ ] Unable to determine In addition, please specify: Present on Admission (POA): [ X] Yes [ ] No [ ] Unable to determine For continuity of documentation, please document condition throughout progress notes and discharge summary. Thank You. CLINICAL INDICATORS - SIGNS / SYMPTOMS / LABS BP 105/51 - Documented in Emergency room visit page 2 on 01/05 by DO Mosquera Jennifer Pulse 110 - Documented in Emergency room visit page 2 on 01/05 by DO Mosquera Jennifer Fever 100.4 - Documented in Emergency room visit page 6 on 01/05 by DO Mosquera Jennifer Elevated WBC 12.3 - Documented in Emergency room visit page 9 on 01/05 by DO Mosquera Jennifer Sepsis - Documented in Emergency room visit page 8 on 01/05 by DO Mosquera Jennifer SIRS - Documented in H&P on 01/05/19 by Aarti Dalton MD SIRS indices improving - Documented in Progress notes on 01/06/19 by Aarti Dalton MD RISK FACTORS Diabetic foot infection - Documented in H&P on 01/05/19 by Aarti Dalton MD TREATMENTS: We will resuscitate him with gentle IV fluids - Documented in H&P on 01/05/19 by Aarti Dalton MD We will continue the enpiric antibiotics for now - Documented in H&P on by Aarti Dalton MD He has received Vancomycin and Zosyn - Documented in H&P on 01/05/19 by Aarti Dalton MD [employer] Winform Viewer (This form is maintained as a part of the permanent medical record) 2014 [employer]. All Rights Reserved [email or web address] [not provided] MTDD
== END 2019-01-07 14:22 | disposition home or self-care (01) | DRG 638 ==
LOC: ERS 10:54 → SJJU 14:34
PROVIDERS: ADMIT Internal Medicine; ATTEND Internal Medicine
DX: E11.621 Type 2 diabetes mellitus with foot ulcer (principal); R65.10 Systemic inflammatory response syndrome (SIRS) of non-infectious origin without acute organ dysfunction; L97.519 Non-pressure chronic ulcer of other part of right foot with unspecified severity; L08.9 Local infection of the skin and subcutaneous tissue, unspecified; I10 Essential (primary) hypertension; E11.65 Type 2 diabetes mellitus with hyperglycemia; Z79.84 Long term (current) use of oral hypoglycemic drugs; Z89.411 Acquired absence of right great toe; Z91.19 Patient's noncompliance with other medical treatment and regimen
CPT/HCPCS: 36415; 36416; 80048; 80053; 80202; 83036; 84484; 85025; 85652; 86140; 87040; 93005; 96361; 96365; 96375; J1650; J1815; J2405; J2543; J3370; J3490; J7050; S0028

== ENCOUNTER 2020-03-11 02:10 | Inpatient (IN) | payer OTHER, SELFPAY ==
[2020-03-11 02:59] LABS: #Basophils 0.1 thou/uL (0.0-0.2); #Eosinphils 0.3 thou/uL (0.0-0.7); #Lymphocytes 1.6 thou/uL (1.20-3.40); #Monocytes 0.4 thou/uL (0.11-0.59); #Neutrophils 3.2 thou/uL (1.40-6.50); %Basophils 1.4 % (0.0-1.0); %Eosinophils 6.3 % (0.0-10.0); %Lymphocytes 28.4 % (21.0-51.0); %Monocytes 6.8 % (0.0-10.0); %Neutrophils 57.1 % (42.0-75.0); Hemoglobin 13.2 g/dL (14.0-18.0); Mean Corpuscular HGB CONC 34.3 g/dL (32.0-36.0); Mean Corpuscular Hemoglobin 31.9 pg (27.0-31.0); Mean Corpuscular Volume 92.9 fL (78.0-98.0); Mean Platelet Volume 9.5 fL (7.4-10.4); Platelet Count 264 thou/uL (130-400); Red Blood Cell (RBC) Count 4.14 mill/uL (4.70-6.10); White Blood Cell (WBC) Count 5.6 thou/uL (4.8-10.8)
[2020-03-11 03:11] LABS: ALT (SGPT) 7 U/L (8-55); AST (SGOT) 10 U/L (5-34); Albumin 3.2 g/dL (3.5-5.0); Alkaline Phosphatase 66 U/L (40-110); Anion Gap 11 mmol/L (10-20); BUN (Urea Nitrogen) 13 mg/dL (8.9-20.6); Bilirubin, Total 0.2 mg/dL (0.2-1.2); CRP (Inflammatory) 3.74 mg/dL (= or < 0.5); Calc. Creatinine Clearance 0 mL/min (70-130); Calcium 8.5 mg/dL (7.8-10.44); Carbon Dioxide 24 mmol/L (22-29); Chloride 102 mmol/L (98-107); Estimated GFR-MDRD 84; Globulin 4.3 g/dL (2.4-3.5); Glucose 305 mg/dL (70-105); Potassium 4.1 mmol/L (3.5-5.1); Protein, Total 7.5 g/dL (6.0-8.3); Sodium 133 mmol/L (136-145)
[2020-03-11] MEDS ORDERED: Vancomycin 1.5 GRAM/300 ML BAG 1.5 GM in Premix Bag 1 BAG IVPB SCH ×2 (03:15→12:00)
[2020-03-11] MEDS ORDERED: Piperacillin/Tazobactam 4.5 GM VIAL ONE (03:16)
[2020-03-11] MEDS ORDERED: Acetaminophen 325 MG TAB PO PRN ×2 (05:08→09:47)
[2020-03-11] MEDS ORDERED: Ondansetron ODT 4 MG TAB SL PRN (05:08)
[2020-03-11] MEDS ORDERED: Ondansetron PF 4 MG/2 ML Vial IVP PRN ×2 (05:08→09:47)
[2020-03-11 05:31] VITALS: BMI 23.1
[2020-03-11] MEDS ORDERED: Piperacillin/Tazobactam 4.5 GM in Sodium Chloride 0.9% 100 ML IVPB SCH (06:00)
--- NOTE | 2020-03-11 08:15 | RAD ---
RIGHT FOOT 3 VIEWS: Date: 03/11/2020 INDICATION: History of osteomyelitis of right second digit. COMPARISON: Prior study dated 01/05/2019. FINDINGS: Partial amputation of the great toe is stable appearing. There is now destructive osteolysis involvin g the distal phalanx of the right second digit consistent with the patient's reported history of oste omyelitis. There are changes involving the distal aspect of the middle phalanx of the right second di git, also suspicious for osteomyelitis. There is soft tissue swelling of the second digit and dorsal foot suspicious for cellulitis. Enthesopathic change is seen off the calcaneus. There are Monckeberg' s calcifications within the soft tissues. Lisfranc alignment is preserved. IMPRESSION: Osteomyelitis of the right second digit. POS: BH
[2020-03-11] MEDS ORDERED: Guaifenesin DM 100-10/5 ML UDCUP PO PRN (09:47)
[2020-03-11] MEDS ORDERED: HYDROcodone/Acetaminophen 5/325 mg Tablet PO PRN ×2 (09:47→15:23)
[2020-03-11] MEDS ORDERED: HumaLOG 300 UNITS/3 ML VIAL SC PRN (09:47)
[2020-03-11] MEDS ORDERED: Calcium Carbonate 500 MG ChewTAB PO PRN (09:47)
[2020-03-11] MEDS ORDERED: Dextrose 5% in Water 1,000 ML IV PRN (09:47)
[2020-03-11] MEDS ORDERED: Dextrose 50% Abboject 50 ML SYRINGE SLOW IVP PRN (09:47)
[2020-03-11] MEDS ORDERED: Senokot S 8.6-50 MG TAB PO PRN (09:47)
[2020-03-11] MEDS ORDERED: Sodium Chloride 0.9% 1,000 ML IV SCH (09:47)
[2020-03-11] MEDS ORDERED: Bisacodyl 10 MG SUPP PR PRN (09:47)
[2020-03-11] MEDS ORDERED: PROPOFOL 200 MG/20 ML VIAL ONE (10:16)
[2020-03-11] MEDS ORDERED: Lidocaine 1% PF 5 ML VIAL ONE (10:16)
[2020-03-11] MEDS ORDERED: Ondansetron PF 4 MG/2 ML Vial ONE (10:16)
[2020-03-11] MEDS ORDERED: Piperacillin/Tazobactam 3.375 GM in Sodium Chloride 0.9% 100 ML IVPB SCH (11:00)
[2020-03-11] MEDS: Piperacillin/Tazobactam 3.375 GM in Sodium Chloride 0.9% 100 ML IVPB SCH ×3 (11:10→23:49)
--- NOTE | 2020-03-11 12:49 | HP ---
REASON FOR ADMISSION: Right second toe osteomyelitis. HISTORY OF PRESENTING ILLNESS: The patient gives history of cutting his toenail on the right foot a week back. From then on, he has had small drainage around the nail, and finally, the nail fell off. He has had swelling of his toe from last 2 days. It is also discolored. The patient says his toe was bent over after he had amputation of the right great toe. He has not had any fever as such. As the toe was swollen, red and was hurting, the patient came to emergency room. PAST MEDICAL AND SURGICAL HISTORY: Diabetes mellitus type 2, history of right great toe amputation in the past. CURRENT MEDICATIONS: Glipizide 5 mg twice daily, lisinopril 2.5 mg daily. ALLERGIES: NO KNOWN DRUG ALLERGIES. PERSONAL HISTORY: Smokes occasionally a cigar. Does not abuse drugs or alcohol. He lives with his girlfriend. FAMILY HISTORY: Mother at the age of 58. She had history of coronary artery disease. Father in his 60s. He had history of throat cancer. CODE STATUS: Full. REVIEW OF SYSTEMS: CONSTITUTIONAL: Negative for weight loss or gain, ability to conduct usual activities. SKIN: Negative for rash, itching. EYES: Negative for double vision, pain. ENT/MOUTH: Negative for nose bleeding, neck stiffness, pain, tenderness. CARDIOVASCULAR: Negative for palpitations, dyspnea on exertion, orthopnea. RESPIRATORY: Negative for shortness of breath, wheezing, cough, hemoptysis, fever or night sweats. GASTROINTESTINAL: Negative for poor appetite, abdominal pain, heartburn, nausea, vomiting, constipation, or diarrhea. GENITOURINARY: Negative for urgency, frequency, dysuria, nocturia. MUSCULOSKELETAL: Negative for pain, swelling. NEUROLOGIC/PSYCHIATRIC: Negative for anxiety, depression. ALLERGY/IMMUNOLOGIC: Negative for skin rash, bleeding tendency. PHYSICAL EXAMINATION: GENERAL: The patient is a 49-year-old male, who is currently not in any acute distress. VITAL SIGNS: Blood pressure 130/86, pulse 80 per minute, respiratory rate 18 per minute, temperature 98 degrees Fahrenheit, saturating 97% on room air. NECK: Supple. No elevated JVD. HEENT: Eyes; extraocular muscles intact. Pupils reacting to light. Oral cavity, mucous membranes are moist. No exudates or congestion. CARDIOVASCULAR: S1 and S2 heard. Regular rhythm. RESPIRATORY: Air entry 1+ bilateral. No rales or rhonchi. ABDOMEN: Soft. Bowel sounds heard. No tenderness, rigidity, or guarding. EXTREMITIES: Right second toe is edematous and has severe erythema. Also, the toe is in a flexion contracture. There is no other edema or redness in the other toes. Peripheral pulses are 1+ bilateral. CENTRAL NERVOUS SYSTEM: No gross focal motor deficits noted. The patient is alert, awake, and oriented well. PSYCHIATRIC: The patient's mood is euthymic. No hallucinations or delusions. LABORATORY DATA: White count of 5.6, H and H 13 and 38, platelet count 264. Right foot 3-view x-ray done shows signs of osteomyelitis of the right second digit. Sodium 133, serum bicarb 24, BUN 13, creatinine 1.1, serum glucose is 305. Liver enzymes are within normal limits. CRP 3.74, albumin 3.2. CLINICAL IMPRESSION AND PLAN: The patient will be admitted to medical floor for right second toe osteomyelitis and likely will need amputation. I have spoken to Dr. Grayson. The patient is eating his breakfast, and we will keep him n.p.o. for now until Dr. Grayson sees him. He has been given a dose of vancomycin and Zosyn in the ER and will continue the same. He will be on gentle IV hydration with normal saline at 50 mL per hour. We will hold off on glipizide and lisinopril for now until he is postop. He will be on Humalog moderate coverage. Blood and wound cultures will be obtained. We will continue to closely monitor him on medical floor. Job ID: [id number]
[2020-03-11 13:54] LABS: SARS-CoV-2 MS2 Positive; SARS-CoV-2 N Gene Negative; SARS-CoV-2 S Gene Negative; SARS-CoV-2 by NAA Not Detected (NotDetected); SARS-CoV-2 orf1ab Negative
[2020-03-11] MEDS ORDERED: traMADol HCl 50 MG TAB PO PRN (15:12)
[2020-03-11] MEDS ORDERED: Ibuprofen 600 MG TAB PO PRN (15:12)
[2020-03-11] MEDS ORDERED: Acetaminophen 500 MG TAB PO PRN (15:12)
[2020-03-11] MEDS: Vancomycin 1.5 GRAM/300 ML BAG 1.5 GM in Premix Bag 1 BAG IVPB SCH (15:33)
--- NOTE | 2020-03-11 15:44 | CON ---
DATE OF CONSULTATION: HISTORY OF PRESENT ILLNESS: Edward Aguila is a 49-year-old male patient with right second toe diabetic foot infection. X-ray revealed osteomyelitis. I had seen him in 2018 for amputation of his right great toe proximal phalanx. It has healed well. He has been very active and had been seeing a child development instructor in routine basis every six months. The patient was admitted. X-rays revealed osteomyelitis of right second toe. For the last 2 to 3 weeks, he has been caring for this toe after trimming his nail. Plan is amputation of the right second toe through the proximal phalanx and outpatient wound care arranged with [facility] and oral antibiotics on discharge. Continue IV antibiotics in the hospital. ALLERGIES: NONE. SOCIAL HISTORY: Tobacco, none. Alcohol, none. MEDICATIONS: Outpatient, 1. Glipizide. 2. Lisinopril. PAST SURGICAL HISTORY: Amputation of the right great toe through the proximal phalanx, 2018. REVIEW OF SYSTEMS: Noncontributory. FAMILY HISTORY: Noncontributory. PHYSICAL EXAMINATION: VITAL SIGNS: 6 feet 5 inches, 194 pounds, 23 BMI. Temperature 98 degrees, pulse 79, blood pressure 131/86. HEAD, EARS, EYES, NOSE, AND THROAT: Unremarkable. LUNGS: Clear to auscultation. CARDIAC: Regular rate and rhythm murmur or gallop. ABDOMEN: Soft, nontender. EXTREMITIES: Unremarkable, except for right second toe severe diabetic infection and deformity with purulent sinuses and marked edema. LABORATORY DATA: White count 5, hemoglobin 13. Basic metabolic profile normal. Glucose 305. Hemoglobin A1c not ordered. Serology negative COVID. ASSESSMENT: Diabetic infection of right second toe. PLAN: Amputation and wound care, and discharge home later in the week on oral antibiotics after outpatient wound VAC arranged. Job ID: [id number]
[2020-03-11] MEDS ORDERED: Promethazine HCl 25 MG/ML VIAL IM PRN ×2 (16:47→18:03)
[2020-03-11] MEDS ORDERED: Ondansetron HCl/PF 4 MG/2 ML Vial IVP PRN ×2 (16:47→18:03)
[2020-03-11] MEDS ORDERED: Promethazine HCl 25 MG/ML VIAL SLOW IVP PRN ×2 (16:47→18:03)
[2020-03-11] MEDS ORDERED: Fentanyl 100 MCG/2 ML VIAL ONE (17:04)
[2020-03-11] MEDS ORDERED: PACU-Morphine 4MG/ML VIAL SLOW IVP PRN (18:03)
[2020-03-11] MEDS ORDERED: Morphine Sulfate 2 MG/ML SYRINGE SLOW IVP PRN (18:03)
[2020-03-11] MEDS ORDERED: HYDROmorphone 2 MG/ML VIAL SLOW IVP PRN (18:03)
[2020-03-11] MEDS: Famotidine 20 MG TAB PO SCH (20:09)
[2020-03-11] MEDS ORDERED: Vancomycin HCl 1 GM in Sodium Chloride 0.9% 250 ML 250 ML IVPB SCH (21:00)
[2020-03-12] MEDS: Vancomycin 1.5 GRAM/300 ML BAG 1.5 GM in Premix Bag 1 BAG IVPB SCH ×2 (03:14→15:44)
[2020-03-12] MEDS: Piperacillin/Tazobactam 3.375 GM in Sodium Chloride 0.9% 100 ML IVPB SCH ×3 (05:28→19:52)
[2020-03-12] MEDS: HumaLOG 300 UNITS/3 ML VIAL SC PRN ×3 (05:33→16:36)
[2020-03-12 05:56] LABS: #Eosinphils 0.4 thou/uL (0.0-0.7); #Lymphocytes 1.7 thou/uL (1.20-3.40); #Monocytes 0.4 thou/uL (0.11-0.59); #Neutrophils 2.1 thou/uL (1.40-6.50); %Basophils 0.5 % (0.0-1.0); %Lymphocytes 37.1 % (21.0-51.0); %Monocytes 9.6 % (0.0-10.0); %Neutrophils 44.9 % (42.0-75.0); Hemoglobin 12.3 g/dL (14.0-18.0); Mean Corpuscular HGB CONC 33.6 g/dL (32.0-36.0); Mean Corpuscular Hemoglobin 31.2 pg (27.0-31.0); Mean Corpuscular Volume 92.7 fL (78.0-98.0); Mean Platelet Volume 9.1 fL (7.4-10.4); Platelet Count 256 thou/uL (130-400); RBC Distribution Width 11.1 % (11.5-14.5); Red Blood Cell (RBC) Count 3.94 mill/uL (4.70-6.10); White Blood Cell (WBC) Count 4.6 thou/uL (4.8-10.8)
[2020-03-12 06:18] LABS: Anion Gap 10 mmol/L (10-20); BUN (Urea Nitrogen) 11 mg/dL (8.9-20.6); Calc. Creatinine Clearance 96 mL/min (70-130); Calcium 8.2 mg/dL (7.8-10.44); Carbon Dioxide 25 mmol/L (22-29); Chloride 103 mmol/L (98-107); Estimated GFR-MDRD 81; Glucose 256 mg/dL (70-105); Potassium 4.7 mmol/L (3.5-5.1); Sodium 133 mmol/L (136-145)
[2020-03-12] MEDS: traMADol HCl 50 MG TAB PO PRN (08:20)
[2020-03-12] MEDS: Famotidine 20 MG TAB PO SCH ×2 (08:20→19:51)
[2020-03-12] MEDS: Enoxaparin Sodium 40 MG/0.4 ML SYRINGE SC SCH (10:24)
--- NOTE | 2020-03-12 10:36 | PRG ---
DATE OF SERVICE: 03/12/2020 Mr. Aguila is doing well after amputation of right second toe yesterday. He had good blood supply. This should heal quickly as did his 1st toe adjacent. He lives in [place]. He does not have any transportation issues and will be able to go outpatient wound care for VAC care twice a week. oven worker is working on arrangements. Wound Care will place a wound VAC today. He probably can be discharged home Tuesday on oral antibiotics. I can see him in my office in 2 to 3 weeks. Job ID: [id number]
--- NOTE | 2020-03-12 11:51 | OP ---
DATE OF PROCEDURE: 03/11/2020 PREOPERATIVE DIAGNOSES: 1. Right 2nd toe diabetic infection with osteomyelitis. 2. Previous amputation of the right great toe through the proximal phalanx, well healed secondarily. POSTOPERATIVE DIAGNOSES: 1. Right 2nd toe diabetic infection with osteomyelitis. 2. Previous amputation of the right great toe through the proximal phalanx, well healed secondarily. PROCEDURE PERFORMED: Amputation of right 2nd toe through the proximal phalanx with wound left open for healing by secondary intention. Wound Care to place wound VAC tomorrow. ANESTHESIA: General. NOTE: Good blood supply, good bleeding, good palpable pedal pulses. DESCRIPTION OF PROCEDURE: The patient was taken to the operating room where under general anesthesia, right foot was prepared with ChloraPrep and draped in routine fashion. Amputation of the right 2nd toe through the proximal phalanx achieved by making a fishmouth incision in the skin and subcutaneous tissue about the proximal phalanx of the right 2nd toe, carried down to skin and subcutaneous tissue, bone transected with a bone cutter, resecting proximally with a rongeur. Connective tissue and tendons debrided sharply. Wound irrigated. Hemostasis gained with cautery. Irrigation performed. Gauze dressings applied. The patient tolerated the procedure well. Job ID: [id number]
--- NOTE | 2020-03-12 12:37 | OP ---
DATE OF PROCEDURE: 03/11/2020 PREOPERATIVE DIAGNOSIS: Diabetic osteomyelitis infection, right second toe. POSTOPERATIVE DIAGNOSIS: Diabetic osteomyelitis infection, right second toe. PROCEDURE PERFORMED: Amputation of right second toe through the proximal phalanx, wound left open to heal by secondary intention. Wound VAC to be applied tomorrow. ANESTHESIA: General. No good blood supply, hair on his toes and feet. DESCRIPTION OF PROCEDURE: The patient was taken to the operating room, where under general anesthesia, right lower extremity was prepared with ChloraPrep and draped in routine fashion. An incision was made for a fish-mouth incision. Amputation of the right second toe overlying the proximal phalanx. The proximal phalanx transected with a bone cutter, resected proximally with rongeurs, connective tissue debrided sharply. Good hemostasis noted. Good bleeding noted. Wound irrigated. Gauze dressing applied. The patient tolerated the procedure well. Job ID: [id number]
--- NOTE | 2020-03-12 12:55 | PDOC.HOSPP ---
- Subjective Encounter Date: 03/12/20 Encounter Time: 11:00 Subjective: no pain, feels better is waiting for wound vac application - Objective Vital Signs & Weight: Vital Signs (12 hours) Temp Pulse Resp BP Pulse Ox 03/12/20 07:25 98.1 F 79 18 133/90 100 03/12/20 04:40 97.9 F 79 18 140/93 H 92 L Weight Admit Weight 194 lb 8.992 oz Weight 194 lb 9 oz Result Diagrams: 03/12/20 05:29 03/12/20 05:29 Additional Labs: Accuchecks 03/12/20 03/12/20 03/11/20 11:06 04:28 22:20 POC Glucose 183 H 237 H 175 H Hospitalist ROS - Medication Medications: Active Medications Generic Name Dose Route Start Last Admin Trade Name Freq PRN Reason Stop Dose Admin Enoxaparin Sodium 40 mg 03/12/20 09:00 03/12/20 10:24 Lovenox SC Not Given 0900 RUFINO Famotidine 20 mg 03/11/20 21:00 03/12/20 08:20 Pepcid PO 20 mg BID RUFINO Administration Piperacillin Sod/Tazobactam 100 mls @ 200 mls/hr 03/11/20 12:00 03/12/20 11: 58 Sod 3.375 gm/ Sodium Chloride IVPB 100 mls Q6HR RUFINO Administration Vancomycin HCl 1.5 gm/ Device 300 mls @ 200 mls/hr 03/11/20 15:00 03/12/20 03 :14 IVPB 300 mls 0300,1500 RUFINO Administration Insulin Human Lispro 0 units 03/11/20 09:47 03/12/20 11:59 Humalog SC 2 unit .MODERATE SLIDING SC PRN Administration Moderate Correctional Scale Sodium Chloride 10 ml 03/11/20 21:00 03/12/20 11:26 Flush - Normal Saline IVF Not Given Q12HR RUFINO Tramadol HCl 50 mg 03/11/20 15:12 03/12/20 08:20 Ultram PO 50 mg Q6H PRN Administration Moderate Pain (4-6) - Exam General Appearance: awake alert Eye: PERRL, anicteric sclera ENT: no oropharyngeal lesions, moist mucosa Neck: supple, no JVD Heart: RRR, no murmur Respiratory: no wheezes, no rales Gastrointestinal: soft, non-tender, non-distended, normal bowel sounds Extremities: no cyanosis Extremities - other findings: right forefoot in dressing Neurological: cranial nerve grossly intact, no focal deficits Psychiatric: normal affect, A&O x 3 Hosp A/P (1) Foot osteomyelitis, right Code(s): M86.9 - OSTEOMYELITIS, UNSPECIFIED Status: Acute Qualifiers: (2) DM type 2 (diabetes mellitus, type 2) Status: Chronic Qualifiers: Diabetes mellitus chcf insulin use: without chcf use (3) HTN (hypertension) Code(s): I10 - ESSENTIAL (PRIMARY) HYPERTENSION Status: Chronic Qualifiers: Hypertension type: essential hypertension Qualified Code(s): I10 - Essential (primary) hypertension - Plan is s/p amputation of right 2nd toe 03/11 is on vanc and zosyn, no cultures so far awaiting wound vac placement and outpt set up as well continue home dose glipizide encourage po intake
[2020-03-12] MEDS: Vancomycin HCl 1.75 GM in Sodium Chloride 0.9% 500 ML IVPB SCH (16:37)
[2020-03-13] MEDS: Piperacillin/Tazobactam 3.375 GM in Sodium Chloride 0.9% 100 ML IVPB SCH ×2 (02:11→08:29)
[2020-03-13] MEDS: traMADol HCl 50 MG TAB PO PRN (02:17)
[2020-03-13] MEDS: Vancomycin HCl 1.75 GM in Sodium Chloride 0.9% 500 ML IVPB SCH (03:15)
[2020-03-13] MEDS: HumaLOG 300 UNITS/3 ML VIAL SC PRN (05:28)
[2020-03-13 07:29] VITALS: BP 131/87; TEMP 98
[2020-03-13] MEDS: Enoxaparin Sodium 40 MG/0.4 ML SYRINGE SC SCH (08:25)
[2020-03-13] MEDS: Famotidine 20 MG TAB PO SCH (08:26)
--- NOTE | 2020-03-13 14:33 | DIS ---
DATE OF ADMISSION: 03/11/2020 DATE OF DISCHARGE: 03/13/2020 DISCHARGE DISPOSITION: Home. PRIMARY DISCHARGE DIAGNOSIS: The patient is status post amputation of right 2nd toe. SECONDARY DISCHARGE DIAGNOSES: 1. Diabetes mellitus type 2. 2. Hypertension. PROCEDURES DONE DURING HOSPITALIZATION: The patient has had foot x-ray done on 03/11/2020, which showed findings of osteomyelitis of right second digit. He has had amputation of the right second toe through the proximal phalanx wound left open by secondary intention and wound VAC was applied on 03/11/[address] Grayson. Blood cultures x2, no growth. White count of 5, H and H 13 and 38, platelet count is 264, MCV is 92, sedimentation rate 72, BUN 11, creatinine 1.1. CRP 3.74. Liver enzymes within normal limits. COVID-19 PCR was not detected on 03/11/2020. DISCHARGE MEDICATIONS: 1. Glipizide extended release 2.5 mg twice daily. 2. Augmentin 875 mg p.o. twice daily for 1 week. 3. Motrin 400 mg p.o. q.8 hourly p.r.n. for pain. 4. Lisinopril 5 mg p.o. daily. ALLERGIES: NO KNOWN DRUG ALLERGIES. DISCHARGE PLAN: The patient will follow up with [facility] on 03/14/2020 at 10:30 a.m. He needs to follow up with Dr. Grayson in 2 to 3 weeks; primary care physician, Dr. Melissa Husain, in 1 week. BRIEF COURSE DURING HOSPITALIZATION: The patient initially came in with complaints of pain, swelling, and redness of right 2nd toe. This started off when he tried to trim his nail and finally got infected with nail falling off. His right 2nd toe was severely edematous and discolored. In view of his underlying diabetes and current findings of osteomyelitis on the foot x-ray, the patient has had consultation with Dr. Grayson. He has had amputation of the right 2nd toe done. Post procedure, the patient's 2nd toe wound area has been placed in wound VAC. Outpatient wound VAC has been arranged by Case Management. He will follow up with Wound Care at [facility] and Dr. Grayson. Followup appointments have been set up by Case Management. Please note, I have seen and examined the patient on the day of discharge. Job ID: [id number]
== END 2020-03-13 13:31 | disposition home or self-care (01) | DRG 617 ==
LOC: ERS 02:10 → T4-A 03:49
PROVIDERS: ADMIT Internal Medicine; ATTEND Internal Medicine
PROC: 0Y6R0Z1 Detachment at Right 2nd Toe, High, Open Approach (ICD-10-PCS; principal; 2020-03-11)
DX: E11.69 Type 2 diabetes mellitus with other specified complication (principal); M86.8X7 Other osteomyelitis, ankle and foot; Z20.828 Contact with and (suspected) exposure to other viral communicable diseases; I10 Essential (primary) hypertension; Z89.411 Acquired absence of right great toe; Z79.84 Long term (current) use of oral hypoglycemic drugs
CPT/HCPCS: 36415; 36416; 80048; 80053; 80202; 85025; 85652; 86140; 87040; 87070; 87205; 87635; 88305; 88311; 96365; 96367; J1650; J2405; J2543; J2704; J3010; J3370; J3490; J7030; U0003

== ENCOUNTER 2022-03-28 20:56 | Inpatient (IN) | payer OTHER ==
[2022-03-28 22:12] LABS: #Eosinphils 0.3 thou/uL (0.0-0.7); #Lymphocytes 1.3 thou/uL (1.20-3.40); #Monocytes 0.8 thou/uL (0.11-0.59); #Neutrophils 5.3 thou/uL (1.40-6.50); %Basophils 0.4 % (0.0-1.0); %Eosinophils 3.4 % (0.0-10.0); %Lymphocytes 17.1 % (21.0-51.0); %Monocytes 10.4 % (0.0-10.0); %Neutrophils 68.8 % (42.0-75.0); Mean Corpuscular HGB CONC 34.3 g/dL (32.0-36.0); Mean Corpuscular Hemoglobin 32.4 pg (27.0-31.0); Mean Corpuscular Volume 94.5 fL (78.0-98.0); Mean Platelet Volume 9.2 fL (7.4-10.4); Platelet Count 192 thou/uL (130-400); Red Blood Cell (RBC) Count 4.01 mill/uL (4.70-6.10); White Blood Cell (WBC) Count 7.6 thou/uL (4.8-10.8)
[2022-03-28 22:33] LABS: ALT (SGPT) 14 U/L (8-55); AST (SGOT) 16 U/L (5-34); Albumin 3.3 g/dL (3.5-5.0); Alkaline Phosphatase 74 U/L (40-110); Anion Gap 14 mmol/L (10-20); BUN (Urea Nitrogen) 15 mg/dL (8.4-25.7); Calc. Creatinine Clearance 0 mL/min (70-130); Carbon Dioxide 26 mmol/L (22-29); Chloride 100 mmol/L (98-107); Estimated GFR 61; Globulin 4.3 g/dL (2.4-3.5); Glucose 149 mg/dL (70-105); Potassium 4.1 mmol/L (3.5-5.1); Protein, Total 7.6 g/dL (6.0-8.3); Sodium 136 mmol/L (136-145)
[2022-03-28] MEDS ORDERED: CEFAZOLIN 2 GM VIAL ONE (22:44)
[2022-03-28] MEDS ORDERED: Ondansetron PF 4 MG/2 ML Vial IVP PRN (23:45)
[2022-03-28] MEDS ORDERED: Acetaminophen 325 MG TAB PO PRN (23:45)
[2022-03-28] MEDS ORDERED: Dextrose 5% in Water 1,000 ML IV PRN (23:49)
[2022-03-28] MEDS ORDERED: Dextrose 50% Abboject 50 ML SYRINGE SLOW IVP PRN (23:49)
[2022-03-29 00:57] VITALS: BMI 22.6
[2022-03-29] MEDS ORDERED: Sodium Chloride 0.9% 1,000 ML IV SCH (01:15)
[2022-03-29] MEDS ORDERED: VANCOMYCIN 1.75 GM/500 ML BAG 1.75 GM in Premix Bag 1 BAG IVPB SCH (02:00)
[2022-03-29 05:28] LABS: #Eosinphils 0.2 thou/uL (0.0-0.7); #Lymphocytes 1.7 thou/uL (1.20-3.40); #Monocytes 0.8 thou/uL (0.11-0.59); #Neutrophils 4.4 thou/uL (1.40-6.50); %Basophils 0.3 % (0.0-1.0); %Eosinophils 2.9 % (0.0-10.0); %Lymphocytes 23.9 % (21.0-51.0); %Monocytes 11.1 % (0.0-10.0); %Neutrophils 61.8 % (42.0-75.0); Hemoglobin 12.4 g/dL (14.0-18.0); Mean Corpuscular HGB CONC 34.1 g/dL (32.0-36.0); Mean Corpuscular Hemoglobin 32.3 pg (27.0-31.0); Mean Corpuscular Volume 94.6 fL (78.0-98.0); Platelet Count 193 thou/uL (130-400); RBC Distribution Width 10.9 % (11.5-14.5); Red Blood Cell (RBC) Count 3.84 mill/uL (4.70-6.10); White Blood Cell (WBC) Count 7.2 thou/uL (4.8-10.8)
[2022-03-29 05:36] LABS: Hemoglobin A1c 10.6 % (4.0-6.0)
[2022-03-29 05:51] LABS: Anion Gap 14 mmol/L (10-20); BUN (Urea Nitrogen) 13 mg/dL (8.4-25.7); Calc. Creatinine Clearance 96 mL/min (70-130); Calcium 8.6 mg/dL (7.8-10.44); Carbon Dioxide 21 mmol/L (22-29); Chloride 104 mmol/L (98-107); Estimated GFR 80; Glucose 119 mg/dL (70-105); Potassium 3.9 mmol/L (3.5-5.1); Sodium 135 mmol/L (136-145)
[2022-03-29 07:45] LABS: Glucose 115 mg/dL (70-105)
[2022-03-29 08:35] LABS: SARS-CoV-2 NAA Rapid Test Not Detected (NotDetected)
[2022-03-29] MEDS: Enoxaparin Sodium 40 MG/0.4 ML SYRINGE SC SCH (09:17)
[2022-03-29] MEDS: Famotidine 20 MG TAB PO SCH ×2 (09:22→22:02)
[2022-03-29] MEDS: Docusate 100 MG CAP PO SCH (09:22)
[2022-03-29] MEDS: cefTRIAXone\\ROCEPHIN 2 GM in Sodium Chloride 0.9% 100 ML IVPB SCH (09:36)
[2022-03-29] MEDS ORDERED: fentaNYL Citrate/PF 100 MCG/2 ML SYRINGE ONE (10:38)
[2022-03-29] MEDS ORDERED: Midazolam HCl 2 mg/2 ml Vial ONE (10:38)
[2022-03-29] MEDS ORDERED: Ondansetron PF 4 MG/2 ML Vial ONE (11:54)
[2022-03-29] MEDS ORDERED: PROPOFOL 200 MG/20 ML VIAL ONE (11:54)
[2022-03-29] MEDS ORDERED: Dexamethasone 20 MG/5 ML VIAL ONE (11:54)
[2022-03-29] MEDS ORDERED: Lidocaine 1% MPF 2 ML VIAL ONE (11:54)
[2022-03-29] MEDS ORDERED: Phenylephrine 10 MG/ML VIAL ONE (11:54)
[2022-03-29] MEDS ORDERED: Promethazine HCl 25 MG/ML VIAL IVPB PRN (12:16)
[2022-03-29] MEDS ORDERED: Promethazine HCl 25 MG/ML VIAL IM PRN (12:16)
[2022-03-29] MEDS ORDERED: HYDROmorphone 2 MG/ML VIAL SLOW IVP PRN (12:16)
[2022-03-29] MEDS ORDERED: Ondansetron HCl/PF 4 MG/2 ML Vial IVP PRN (12:16)
[2022-03-29 12:19] LABS: Glucose 109 mg/dL (70-105)
[2022-03-29] MEDS ORDERED: traMADol HCl 50 MG TAB PO PRN (12:55)
[2022-03-29] MEDS ORDERED: Ibuprofen 600 MG TAB PO PRN (12:55)
[2022-03-29] MEDS: VANCOMYCIN 1.25 GM/250 ML BAG 1.25 GM in Premix Bag 1 BAG IVPB SCH (14:32)
[2022-03-29 17:12] LABS: Glucose 233 mg/dL (70-105)
[2022-03-29 21:13] LABS: Glucose 354 mg/dL (70-105)
[2022-03-29] MEDS: HumaLOG 300 UNITS/3 ML VIAL SC PRN (21:51)
[2022-03-30] MEDS: VANCOMYCIN 1.25 GM/250 ML BAG 1.25 GM in Premix Bag 1 BAG IVPB SCH (03:34)
[2022-03-30] MEDS: HumaLOG 300 UNITS/3 ML VIAL SC PRN (05:52)
[2022-03-30 06:32] LABS: #Eosinphils 0.1 thou/uL (0.0-0.7); #Lymphocytes 1.5 thou/uL (1.20-3.40); #Monocytes 0.9 thou/uL (0.11-0.59); %Basophils 0.6 % (0.0-1.0); %Lymphocytes 19.5 % (21.0-51.0); %Monocytes 12.3 % (0.0-10.0); %Neutrophils 66.5 % (42.0-75.0); Hemoglobin 11.8 g/dL (14.0-18.0); Mean Corpuscular HGB CONC 33.2 g/dL (32.0-36.0); Mean Corpuscular Hemoglobin 31.2 pg (27.0-31.0); Mean Platelet Volume 9.3 fL (7.4-10.4); Platelet Count 199 thou/uL (130-400); RBC Distribution Width 10.8 % (11.5-14.5); Red Blood Cell (RBC) Count 3.77 mill/uL (4.70-6.10); White Blood Cell (WBC) Count 7.5 thou/uL (4.8-10.8)
[2022-03-30 06:43] LABS: Anion Gap 12 mmol/L (10-20); BUN (Urea Nitrogen) 16 mg/dL (8.4-25.7); Calc. Creatinine Clearance 98 mL/min (70-130); Calcium 8.4 mg/dL (7.8-10.44); Carbon Dioxide 25 mmol/L (22-29); Chloride 102 mmol/L (98-107); Estimated GFR 82; Glucose 217 mg/dL (70-105); Potassium 3.9 mmol/L (3.5-5.1); Sodium 135 mmol/L (136-145)
[2022-03-30] MEDS: Docusate 100 MG CAP PO SCH (08:51)
[2022-03-30] MEDS: cefTRIAXone\\ROCEPHIN 2 GM in Sodium Chloride 0.9% 100 ML IVPB SCH (08:51)
[2022-03-30] MEDS: Famotidine 20 MG TAB PO SCH (08:51)
[2022-03-30] MEDS: Enoxaparin Sodium 40 MG/0.4 ML SYRINGE SC SCH (08:52)
[2022-03-30 12:16] VITALS: TEMP 97.4
[2022-03-30 15:34] VITALS: BP 142/82
[2022-03-31] MEDS ORDERED: Amoxicillin/Potassium Clav 500 MG TAB PO SCH (09:00)
== END 2022-03-30 15:25 | disposition home or self-care (01) | DRG 617 ==
LOC: ERS 20:56 → SJJU 23:48
PROVIDERS: ADMIT Student in an Organized Health Care Education/Training Program; ATTEND Hospitalist
PROC: 0Y6Q0Z1 Detachment at Left 1st Toe, High, Open Approach (ICD-10-PCS; principal; 2022-03-29)
DX: E11.69 Type 2 diabetes mellitus with other specified complication (principal); M86.172 Other acute osteomyelitis, left ankle and foot; Z20.822 Contact with and (suspected) exposure to COVID-19; E11.628 Type 2 diabetes mellitus with other skin complications; N17.9 Acute kidney failure, unspecified; N18.9 Chronic kidney disease, unspecified; E11.22 Type 2 diabetes mellitus with diabetic chronic kidney disease; I12.9 Hypertensive chronic kidney disease with stage 1 through stage 4 chronic kidney disease, or unspecified chronic kidney disease; Z79.84 Long term (current) use of oral hypoglycemic drugs; Z79.899 Other long term (current) drug therapy
CPT/HCPCS: 36415; 36416; 80048; 80053; 83036; 85025; 85652; 87040; 87070; 87205; 88305; 88311; 93923; 96365; J0690; J0696; J1100; J1650; J1815; J2250; J2370; J2405; J2704; J3370; J3490; J7050; U0002

== ENCOUNTER 2024-04-27 14:09 | Emergency (ER) | payer OTHER ==
[2024-04-27 14:44] LABS: #Basophils 0.03 10x3/uL (0.0-0.2); %Basophils 0.4 % (0.0-1.0); %Eosinophils 4.1 % (0.0-10.0); %Lymphocytes 18.9 % (21.0-51.0); %Monocytes 9.3 % (0.0-10.0); %Neutrophils 67.1 % (42.0-75.0); Hematocrit 33.3 % (42.0-52.0); Mean Corpuscular Hemoglobin 31.2 pg (27.0-31.0); Mean Corpuscular Volume 94.3 fL (78.0-98.0); Mean Platelet Volume 11.4 fL (7.4-10.4); Platelet Count 232 10x3/uL (130-400); RBC Distribution Width 12.3 % (11.5-14.5); Red Blood Cell (RBC) Count 3.53 mill/uL (4.70-6.10)
[2024-04-27 15:04] LABS: CRP,High Sensitivity (Inhouse) 1.97 mg/dL (< or = 0.5)
[2024-04-27 15:05] LABS: ALT (SGPT) 11 U/L (8-55); AST (SGOT) 14 U/L (5-34); Albumin 2.9 g/dL (3.5-5.0); Alkaline Phosphatase 59 U/L (40-110); Anion Gap 11 mmol/L (10-20); BUN (Urea Nitrogen) 25 mg/dL (8.4-25.7); Bilirubin, Total 0.4 mg/dL (0.2-1.2); Calc. Creatinine Clearance 0 mL/min (70-130); Calcium 9.2 mg/dL (7.8-10.44); Carbon Dioxide 27 mmol/L (22-29); Chloride 101 mmol/L (98-107); Estimated GFR 61; Globulin 4.7 g/dL (2.4-3.5); Glucose 163 mg/dL (70-105); Potassium 4.4 mmol/L (3.5-5.1); Protein, Total 7.6 g/dL (6.0-8.3); Sodium 135 mmol/L (136-145)
== END 2024-04-27 18:47 | disposition home or self-care (01) ==
LOC: ERS 14:09
DX: E11.621 Type 2 diabetes mellitus with foot ulcer (principal); L97.519 Non-pressure chronic ulcer of other part of right foot with unspecified severity; L08.9 Local infection of the skin and subcutaneous tissue, unspecified; Z79.899 Other long term (current) drug therapy
CPT/HCPCS: 36415; 80053; 85025; 86141; 99283

== ENCOUNTER 2024-05-02 09:17 | Inpatient (IN) | payer OTHER ==
[2024-05-02 09:56] LABS: #Basophils 0.03 10x3/uL (0.0-0.2); %Basophils 0.5 % (0.0-1.0); %Eosinophils 5.4 % (0.0-10.0); %Lymphocytes 27.1 % (21.0-51.0); %Monocytes 12.4 % (0.0-10.0); %Neutrophils 54.4 % (42.0-75.0); Hematocrit 37.2 % (42.0-52.0); Hemoglobin 12.1 g/dL (14.0-18.0); Mean Corpuscular HGB CONC 32.5 g/dL (32.0-36.0); Mean Corpuscular Hemoglobin 30.8 pg (27.0-31.0); Mean Corpuscular Volume 94.7 fL (78.0-98.0); Mean Platelet Volume 11.1 fL (7.4-10.4); Platelet Count 253 10x3/uL (130-400); RBC Distribution Width 12.1 % (11.5-14.5); Red Blood Cell (RBC) Count 3.93 mill/uL (4.70-6.10)
[2024-05-02] MEDS ORDERED: Iopamidol-370 76% 500 ML MDV (1 ML CHARGE) ONE (10:56)
[2024-05-02 11:14] LABS: ALT (SGPT) 12 U/L (8-55); AST (SGOT) 16 U/L (5-34); Albumin 2.8 g/dL (3.5-5.0); Alkaline Phosphatase 61 U/L (40-110); Anion Gap 13 mmol/L (10-20); BUN (Urea Nitrogen) 17 mg/dL (8.4-25.7); Bilirubin, Total 0.4 mg/dL (0.2-1.2); Calc. Creatinine Clearance 0 mL/min (70-130); Calcium 9.3 mg/dL (7.8-10.44); Carbon Dioxide 25 mmol/L (22-29); Chloride 104 mmol/L (98-107); Estimated GFR 66; Globulin 4.9 g/dL (2.4-3.5); Glucose 101 mg/dL (70-105); Potassium 4.6 mmol/L (3.5-5.1); Protein, Total 7.7 g/dL (6.0-8.3); Sodium 137 mmol/L (136-145)
[2024-05-02] MEDS ORDERED: Cefepime 2 GM VIAL ONE (11:36)
[2024-05-02] MEDS ORDERED: Sodium Chloride 0.9% 100 ML ONE (11:36)
[2024-05-02] MEDS ORDERED: Acetaminophen 325 MG TAB PO PRN (13:07)
[2024-05-02] MEDS ORDERED: Ondansetron PF 4 MG/2 ML Vial IVP PRN (13:07)
[2024-05-02 13:41] LABS: Hemoglobin A1c 8.5 % (4.0-6.0)
[2024-05-02] MEDS ORDERED: Bupivacaine PF 0.5% 30 ML VIAL ONE (14:26)
[2024-05-02] MEDS ORDERED: PROPOFOL 20 ML ONE (14:56)
[2024-05-02] MEDS ORDERED: Midazolam HCl 2 mg/2 ml Vial ONE (14:57)
[2024-05-02] MEDS ORDERED: fentaNYL PF 100 MCG/2 ML SYRINGE ONE (14:57)
[2024-05-02] MEDS ORDERED: PHENYLEPHRINE-NS 100 MCG/ML 10 ML SYRINGE ONE (15:22)
[2024-05-02] MEDS ORDERED: Dexamethasone 4 mg/ml Vial ONE (15:26)
[2024-05-02] MEDS ORDERED: Ondansetron PF 4 MG/2 ML Vial ONE (15:26)
[2024-05-02] MEDS ORDERED: Ketorolac Tromethamine 30 MG (1 mL) VIAL IVP PRN (16:01)
[2024-05-02] MEDS ORDERED: HYDROcodone/Acetaminophen 5/325 mg Tablet PO PRN (16:01)
[2024-05-02] MEDS ORDERED: Lidocaine 1% PF 5 ML VIAL ONE (16:02)
[2024-05-02] MEDS: Vancomycin (BATCH) 2 GM in Premix 1 BAG IVPB SCH (17:17)
[2024-05-02 17:47] VITALS: BMI 25.0
[2024-05-02] MEDS: FLU (Fluarix Triv) TS24-25(6MOS UP)/PF 45 MCG/0.5 ML Syringe IM ONE (18:38)
[2024-05-03 06:12] LABS: #Basophils Less than 0.03 10x3/uL (0.0-0.2); %Basophils 0.3 % (0.0-1.0); %Eosinophils 0.9 % (0.0-10.0); %Lymphocytes 16.7 % (21.0-51.0); %Monocytes 9.6 % (0.0-10.0); %Neutrophils 72.2 % (42.0-75.0); Hematocrit 35.7 % (42.0-52.0); Hemoglobin 11.9 g/dL (14.0-18.0); Mean Corpuscular HGB CONC 33.3 g/dL (32.0-36.0); Mean Corpuscular Hemoglobin 30.7 pg (27.0-31.0); Mean Platelet Volume 11.7 fL (7.4-10.4); Platelet Count 246 10x3/uL (130-400); RBC Distribution Width 12.5 % (11.5-14.5); Red Blood Cell (RBC) Count 3.88 mill/uL (4.70-6.10)
[2024-05-03 06:28] LABS: Anion Gap 10 mmol/L (10-20); BUN (Urea Nitrogen) 20 mg/dL (8.4-25.7); Calc. Creatinine Clearance 89 mL/min (70-130); Calcium 8.6 mg/dL (7.8-10.44); Carbon Dioxide 28 mmol/L (22-29); Chloride 105 mmol/L (98-107); Estimated GFR 66; Glucose 329 mg/dL (70-105); Potassium 4.9 mmol/L (3.5-5.1); Sodium 138 mmol/L (136-145)
[2024-05-03] MEDS ORDERED: Dextrose 50% Abboject 50 ML SYRINGE SLOW IVP PRN (09:45)
[2024-05-03] MEDS ORDERED: Glucagon 1 MG/ML KIT IM PRN (09:45)
[2024-05-03] MEDS ORDERED: Dextrose 5% in Water 1,000 ML IV PRN (09:45)
[2024-05-03] MEDS: Vancomycin (BATCH) 1.25 GM in Premix 1 BAG IVPB SCH ×2 (11:43→20:33)
[2024-05-03] MEDS: Insulin Lispro 100 UNIT/ML 10 ML VIAL SC PRN ×2 (11:44→20:36)
[2024-05-03] MEDS: glipiZIDE XL 5 mg ER.TAB PO SCH (16:05)
[2024-05-03] MEDS ORDERED: glipiZIDE XL 5 mg ER.TAB PO SCH (17:00)
[2024-05-04 05:02] LABS: #Basophils 0.03 10x3/uL (0.0-0.2); %Basophils 0.5 % (0.0-1.0); %Eosinophils 5.8 % (0.0-10.0); %Lymphocytes 32.1 % (21.0-51.0); %Monocytes 10.5 % (0.0-10.0); %Neutrophils 50.9 % (42.0-75.0); Hematocrit 30.8 % (42.0-52.0); Hemoglobin 10.1 g/dL (14.0-18.0); Mean Corpuscular HGB CONC 32.8 g/dL (32.0-36.0); Mean Corpuscular Hemoglobin 30.1 pg (27.0-31.0); Mean Corpuscular Volume 91.9 fL (78.0-98.0); Mean Platelet Volume 11.4 fL (7.4-10.4); Platelet Count 223 10x3/uL (130-400); RBC Distribution Width 12.3 % (11.5-14.5); Red Blood Cell (RBC) Count 3.35 mill/uL (4.70-6.10)
[2024-05-04 05:13] LABS: Anion Gap 9 mmol/L (10-20); BUN (Urea Nitrogen) 16 mg/dL (8.4-25.7); Calc. Creatinine Clearance 105 mL/min (70-130); Calcium 8.2 mg/dL (7.8-10.44); Carbon Dioxide 28 mmol/L (22-29); Cardiac Risk 3.7 (Less than 4.5); Chloride 107 mmol/L (98-107); Cholesterol 138 mg/dl (< 200 Desired); Estimated GFR 80; Glucose 230 mg/dL (70-105); HDL Cholesterol 37 mg/dL (>60 Neg Risk); LDL Cholesterol, Calculated 90 mg/dL; Potassium 4.3 mmol/L (3.5-5.1); Sodium 140 mmol/L (136-145); Triglycerides 57 mg/dL (Less than 150)
[2024-05-04 05:16] LABS: Vancomycin, Random 19.8 ug/mL (See Comment)
[2024-05-04] MEDS: Pioglitazone HCl 15 MG TAB PO SCH (08:43)
[2024-05-04] MEDS: Lisinopril 2.5 MG TAB PO SCH (08:44)
[2024-05-04] MEDS: Aspirin 81 mg Enteric Coated Tablet PO SCH (08:44)
[2024-05-04] MEDS ORDERED: Lisinopril 5 MG TAB PO SCH (09:00)
[2024-05-04 11:43] VITALS: TEMP 97.9
[2024-05-04 16:32] VITALS: BP 138/83
== END 2024-05-04 17:33 | disposition home or self-care (01) | DRG 617 ==
LOC: ERS 09:17 → SUATTDRO 09:17 → SDC 13:51 → T4-A 16:57
PROVIDERS: ADMIT Internal Medicine; ATTEND Internal Medicine
PROC: 0Y6T0Z1 Detachment at Right 3rd Toe, High, Open Approach (ICD-10-PCS; principal; 2024-05-02)
DX: E11.69 Type 2 diabetes mellitus with other specified complication (principal); E11.52 Type 2 diabetes mellitus with diabetic peripheral angiopathy with gangrene; M86.9 Osteomyelitis, unspecified; Z79.84 Long term (current) use of oral hypoglycemic drugs; Z79.899 Other long term (current) drug therapy; Z98.890 Other specified postprocedural states; F17.290 Nicotine dependence, other tobacco product, uncomplicated; I10 Essential (primary) hypertension; E11.65 Type 2 diabetes mellitus with hyperglycemia; Z79.82 Long term (current) use of aspirin
CPT/HCPCS: 36415; 36416; 80048; 80053; 80061; 80202; 83036; 83605; 84145; 85025; 86141; 87040; 87070; 87076; 87077; 87186; 87205; 88305; 88311; 96365; 96366; 96367; 97139; J0665; J0692; J1100; J1815; J2250; J2405; J2704; J3370; Q9967